=== PATIENT | male | born 1940 | race Caucasian/White ===

== ENCOUNTER 2025-10-17 15:10 | Inpatient (IN) | payer MEDICARE, MEDICAID, SELFPAY ==
--- NOTE | ~2025-10-17 | XR_ITS ---
EXAMINATION: XR HIP, LEFT CLINICAL INFORMATION: fall COMPARISON: None available. TECHNIQUE: AP pelvis, AP supine and frog-leg lateral views of the left hip. FINDINGS: There is a fracture through the neck of the left femur with proximal migration of the femur distal to the fracture and mild varus deformity. No fracture is evident. There are mild degenerative changes in the hips otherwise. XR/XR hip LT w PEL1V IMPRESSION: There is an acute left femoral neck fracture. There is mild bilateral hip osteoarthritis. Electronically signed by: Greg Khalil MD 10/17/2025 05:02 PM [facility]
--- NOTE | ~2025-10-17 | CT_ITS ---
EXAMINATION: CT HEAD WITHOUT CONTRAST CLINICAL INFORMATION: Fall with head injury COMPARISON: None available. TECHNIQUE: Contiguous axial imaging was performed from the skull base to vertex without intravenous administration of contrast. This CT examination was performed using dose optimization techniques as appropriate, variously including the following: *Automated exposure control *Adjustment of mA and/or kV according to patient size (this includes techniques or standardized protocols for targeted exams where dose is matched to indication/reason for exam; i.e. extremities or head) *Use of iterative reconstruction technique FINDINGS: There is no acute ischemic change. Periventricular hypodensities are present. There is no intracranial hemorrhage. There is no mass-effect or midline shift. There is mild generalized atrophy. Basal cisterns and ventricles are within normal limits for age/cerebral volume. Orbits are symmetrical and unremarkable. Paranasal sinuses and mastoid air cells are pneumatized. There are no bony abnormalities. CT/CT head/brain wo IV con IMPRESSION: No acute intracranial abnormality. Periventricular hypodensities are likely related to chronic small vessel disease. Electronically signed by: Greg Khalil MD 10/17/2025 04:54 PM EST
--- NOTE | ~2025-10-17 | CT_ITS ---
EXAMINATION: CT CERVICAL SPINE WITHOUT CONTRAST CLINICAL INFORMATION: Fall, head injury COMPARISON: None available. TECHNIQUE: Axial imaging was performed from the base of the skull through T1 without IV contrast. Coronal and sagittal reformatted images were generated from the original axial data set. ALARA: The examination used one or more of the following radiation dose reduction techniques: Automated exposure control, iterative reconstruction, and/or adjustment of mA and/or KV. FINDINGS: There is mild reversal of the normal cervical lordosis. No fractures are identified. There is no prevertebral soft tissue swelling. Chondrocalcinosis is noted increased ligament dens Multilevel degenerative changes are present with moderate to severe disc space during, endplate sclerosis and irregularities most pronounced in the mid to lower cervical spine. CT/CT cervical spine wo IV con IMPRESSION: No acute fracture is identified. There is mild reversal of cervical lordosis. This can be related to degenerative changes, positioning, muscle spasm, or posterior soft tissue injury. Electronically signed by: Greg Khalil MD 10/17/2025 04:58 PM EST
--- NOTE | ~2025-10-17 | XR_ITS ---
EXAMINATION: XR CHEST CLINICAL INFORMATION: fall COMPARISON: 03/16/2019 TECHNIQUE: Frontal view of the chest was obtained. FINDINGS: Mediastinal wires have been placed since the prior. No pneumothorax is identified. Cardiac size is borderline enlarged. There are low lung volumes with vascular crowding. XR/XR chest 1V IMPRESSION: No acute disease Low lung volumes. Electronically signed by: Greg Khalil MD 10/17/2025 05:07 PM EST
--- NOTE | ~2025-10-17 | XR_ITS ---
CLINICAL HISTORY: LEFT HIP SAMRA 1 view pelvis Comparison: CR/SR - XR HIP 1 VIEW LEFT WITH PELVIS - 10/17/25 16:36 EST Findings: No acute fracture or dislocation. Status post left hip replacement. There is postsurgical soft tissue edema of the hip. IMPRESSION: Postsurgical change of the left hip. This document has been electronically signed by: Laureen Perdomo MD on 10/18/2025 18:40:04
--- NOTE | ~2025-10-17 | XR_ITS ---
EXAMINATION: XR CHEST CLINICAL INFORMATION: fever COMPARISON: Previous chest x-rays most recent October 07, [id number] TECHNIQUE: Frontal view of the chest was obtained. FINDINGS: Low lung volumes. Increasing atelectasis or small infiltrate at the left lung base. Left midlung subsegmental atelectasis. The right lung is clear. No pleural effusion or pneumothorax. Cardiac and mediastinal contours are stable. The ascending thoracic aorta may be prominent. This appears unchanged from prior exams. Mediastinal clips. Median sternotomy wires. Degenerative changes of the spine and right shoulder. XR/XR chest 1V IMPRESSION: Low lung volumes and increasing atelectasis or infiltrate at the left lung base. Electronically signed by: Lucrecia Bruce MD 10/20/2025 02:52 PM GENE
[2025-10-17 15:28] VITALS: BP 137/78; BP 150/70; PULSE 62; PULSE 67; RESP 14; TEMP 36.4; O2SAT 94; O2SAT 96; BMI 34.6
[2025-10-17 15:32] VITALS: BP 137/78; PULSE 62; RESP 14; TEMP 36.4; O2SAT 96
--- NOTE | 2025-10-17 15:42 | ECG_ITS ---
Test Reason : FALL Blood Pressure : */* mmHG Vent. Rate : 66 BPM Atrial Rate : 66 BPM P-R Int : 240 ms QRS Dur : 102 ms QT Int : 406 ms P-R-T Axes : 33 -41 84 degrees QTcB Int : 425 ms Sinus rhythm with 1st degree A-V block Left axis deviation Nonspecific ST and T wave abnormality Abnormal ECG No previous ECGs available Referred By: Keaton Donnelly Electronically Signed By: CHRISTIANE MOSELEY
--- NOTE | 2025-10-17 15:43 | ED_ITS ---
HPI - Fall General Chief Complaint: Fall Stated Complaint: Fall, fell on L side, + c-collar Time Seen by Provider: 10/17/25 15:26 Source: patient and EMS Mode of arrival: EMS Limitations: no limitations History of Present Illness ED Provider: DR. Donnelly HPI Narrative: 85-year-old male past medical history significant for HTN, HLD, s/p CABG patient was taking his trash out when he tripped on the curb and fell hit his head on a trash can with no LOC patient also landed on his left hip unable to bear weight on the left hip with severe pain, patient declined taking anticoagulation, no chest pain, no passing out, no LOC. Related Data Allergies Allergy/AdvReac Type Severity Reaction Status Date / Time No Known Allergies Allergy Verified 10/17/25 15:29 Review of Systems 2 Review of Systems: All other systems are reviewed and are negative Constitutional: Reports as per HPI and Reports no additional constitutional complaints Eyes: Reports as per HPI and Reports no additional eye complaints Reports system reviewed and no additional complaints, except as documented Cardiovascular: Reports as per HPI and Reports no additional cardiovascular complaints Respiratory: Reports as per HPI and Reports no additional respiratory complaints Gastrointestinal: Reports as per HPI and Reports no additional gastrointestinal complaints Genitourinary: Reports no additional female genitourinary complaints Musculoskeletal: Reports no additional musculoskeletal complaints Skin/Breast: Reports system reviewed and no additional complaints, except as docu Psychiatric: Reports no additional psychiatric complaints Endocrine: Reports no additional endocrine complaints Hematologic/Lymphatic: Reports no additional hematologic/lymphatic complaints Allergic/Immunologic: Reports no additional allergic/immunologic complaints Reports system reviewed and no additional complaints, except as documented and Reports Abnormal speech present [facility] Social History Social History Smoked in Last 30 Days: No Use of substances other than those prescribed or required for medical reasons: No Advance Directives: Yes Advance Directives Information Provided: No Advance Directives on File: No Do you have a plan to hurt others: No Plan Physical Exam 2 Vital Signs: Vital Signs: Last Vital Signs Temp 97.6 F 10/17/25 15:32 Pulse 62 10/17/25 15:32 Resp 14 10/17/25 15:32 BP 137/78 10/17/25 15:32 Pulse Ox 96 10/17/25 15:32 O2 Del Method Room Air 10/17/25 15:32 BMI result Body Mass Index 34.6 Vital signs have been reviewed and appear to be correct. Blood pressure elevated. Heart rate normal. Respiratory rate normal. Temperature normal. Oxygen saturation normal. Appearance: Alert. Oriented X3. No acute distress. Head: Normal external exam. Normocephalic. Atraumatic. No Modi signs noted. No raccoon eyes noted Eyes: PERRLA. EOMI. Conjunctiva and sclera normal. Eyelids normal. ENT: TM's Normal. Pharynx normal. Uvula midline. Moist mucous membranes. No trismus noted. No drooling noted. No muffled voice noted. Neck: Normal inspection. Neck supple. FROM. No adenopathy. Thyroid Normal. No meningeal signs. No neck mass noted. CVS: Normal heart rate and rhythm. Heart sound normal. No murmurs noted. Pulses normal throughout. Respiratory: No respiratory distress. Painless inspiration. Breath sounds normal. No wheezes/rales/rhonchi noted. Chest nontender. No accessory muscle usage noted or decreased air movement noted. Abdomen: Soft and nontender. Bowel sounds normal in all 4 quadrants. No distention noted. No organomegaly noted. No visible injury noted. Back: No CVA tenderness. Full range of motion noted. Skin: Skin warm and dry. Normal skin color. Normal skin turgor. No rashes/lesions/lacerations noted. Extremities: Left hip: Held in adduction position , tenderness over left hip with mild deformity with shortness and external rotation. Otherwise neurovascularly intact. Neuro: Oriented X 3. Cranial nerve exam: II-XII are grossly intact No motor deficit. No sensory deficit. Reflexes normal. Course Reevaluation(s) Reevaluation #1: 85-year-old male s/p mechanical fall and left hip fracture no history of anticoagulation, normal neuro exam, GCS of 15, negative head CT for acute intracranial pathology. Left femoral neck fracture case discussed with Dr. Sexton who recommended to admit the patient to the medical service and he will schedule the surgery for tomorrow. Time: 17:18 Medical Decision Making Differential Diagnosis Differential Diagnoses: The differential diagnosis associated with the presentation includes ( Mechanical fall, electrolyte derangement, severe anemia, syncopal episode, left hip fracture.) Admission/Observation Consideration of admission/observation: Escalation of care including admission/observation considered Consult Healthcare Provider Management of the patient was discussed with: Hospitalist ( Dr. Hernandez) and [employer] Project Manager ( Dr. Sexton) Lab Data MDM Lab Attestation statement: I reviewed the patient's lab results. 10/17/25 15:57 10/17/25 15:57 Labs: Lab Results 10/17/25 Range/Units 15:57 WBC 7.4 (4.8-10.8) X10*3/uL RBC 5.39 (4.60-5.80) X10*6/uL Hgb 16.1 (14.0-18.0) g/dl Hct 48.2 (42.0-52.0) % MCV 89.4 (80.0-98.0) fL MCH 29.9 (27.0-33.0) pg MCHC 33.4 (31.0-36.0) g/dl RDW 12.6 (11.0-16.0) % Plt Count 156 L (160-400) X10*3/uL MPV 9.4 (9.4-12.4) fL Immature Gran % (Auto) 0.4 (0.0-0.4) % Neut % (Auto) 68.4 (45-73) % Lymph % (Auto) 20.6 (20-40) % [place] % (Auto) 6.8 (2-11) % Eos % (Auto) 2.4 (0-4) % Baso % (Auto) 1.4 (0-2) % Lymph # (Auto) 1.5 (1.2-4.9) X10*3/uL [place] # (Auto) 0.5 (0.1-1.2) X10*3/uL Eos # (Auto) 0.2 (0.0-0.4) X10*3/uL Baso # (Auto) 0.1 (0.0-0.2) X10*3/uL Abs Immat Gran (auto) 0.03 (0.00-0.03) X10*3/uL Absolute Neuts (auto) 5.1 (2.0-8.3) x10*3/uL Absolute Nucleated RBC 0.000 (0.0-0.012) X10*3/uL Nucleated RBC % (auto) 0.0 (0.0-0.2) /100WBC Sodium 142 (135-145) mmol/L Potassium 4.1 (3.3-5.1) mmol/L Chloride 107 (96-108) mmol/L Carbon Dioxide 29 (22-29) mmol/L Anion Gap 10 L (12-20) BUN 14 (9-16) mg/dL Creatinine 0.69 (0.5-1.4) mg/dL Estim Creat Clear Calc 92.8 Estimated GFR > 60 Random Glucose 86 (60-115) mg/dL Calcium 8.8 (8.4-10.2) mg/dL Total Bilirubin 1.9 H (0.0-1.0) mg/dL Direct Bilirubin 0.4 (0.0-0.5) mg/dL AST 30 (5-37) U/L ALT 23 (0-40) U/L Alkaline Phosphatase 95 (39-117) U/L Troponin I High Sens < 2.7 (<3.5-35.0) ng/L Total Protein 6.3 L (6.5-8.0) g/dL Albumin 3.8 (3.5-5.0) g/dL Lipase 57 (8-78) U/L Influenza Type A (PCR) NEGATIVE (Negative) Influenza Type B (PCR) NEGATIVE (Negative) RSV RNA Qual (PCR) NEGATIVE (Negative) SARS-CoV-2 RNA (RT-PCR) NEGATIVE (Negative) Independent Interpretation I performed an independent interpretation of an: Plain X-Ray ( Chest: Left hip: Left femoral neck fracture.) and CT Scan ( head/cervical spine: No acute pathology.) Radiology Impression Discussion of test interpretation with radiology: I have reviewed the radiologist's reading. Discharge Plan Discharge Clinical Impression: Closed fracture of neck of left femur Patient Disposition: Admitted As Inpatient Print Language: [place]
[2025-10-17 16:08] LABS: MANUAL DIFF FLAG NO
[2025-10-17 16:10] LABS: Hematocrit 48.2 % (42.0-52.0); Hemoglobin 16.1 g/dl (14.0-18.0); Imm Gran Abs Auto 0.03 X10*3/uL (0.00-0.03); Imm Gran Pct Auto 0.4 % (0.0-0.4); Lymphocytes Absolute Auto 1.5 X10*3/uL (1.2-4.9); Mean Corpuscular HGB Conc 33.4 g/dl (31.0-36.0); Mean Corpuscular Hemoglobin 29.9 pg (27.0-33.0); Mean Corpuscular Volume 89.4 fL (80.0-98.0); NRBC Abs Auto 0.000 X10*3/uL (0.0-0.012); NRBC Pct Auto 0.0 /100WBC (0.0-0.2); Platelet Count 156 X10*3/uL (160-400); Red Blood Count 5.39 X10*6/uL (4.60-5.80); White Blood Count 7.4 X10*3/uL (4.8-10.8)
[2025-10-17 16:36] LABS: Troponin-I High Sensitivity < 2.7 ng/L (<3.5-35.0)
[2025-10-17 16:37] LABS: Anion Gap 10 (12-20); Blood Urea Nitrogen 14 mg/dL (9-16); Carbon Dioxide 29 mmol/L (22-29); Chloride 107 mmol/L (96-108); Creatinine Clr Calc Pharmacy 92.8; Potassium 4.1 mmol/L (3.3-5.1); Sodium 142 mmol/L (135-145)
[2025-10-17 16:38] LABS: Alanine Aminotransferase 23 U/L (0-40); Albumin Level 3.8 g/dL (3.5-5.0); Alkaline Phosphatase 95 U/L (39-117); Aspartate Amino Transferase 30 U/L (5-37); Calcium 8.8 mg/dL (8.4-10.2); Estimated Glomerular Filt Rate > 60; Lipase 57 U/L (8-78); Total Protein 6.3 g/dL (6.5-8.0)
[2025-10-17 16:51] LABS: Resp Syncy Virus RNA Qual PCR NEGATIVE (Negative); SARS COV2 PCR INHOUSE NEGATIVE (Negative)
--- NOTE | 2025-10-17 16:59 | PC.NURSE ---
A&O x 3 Patient presents to ED after tripping and falling at home Headstrike on trash can Denies LOC, vision changes, thinners, Patient experiencing pain in left hip, unable to bear weight Pending imaging Head CT = negative IV 20G left ac Patient refusing hernandez cath at this time, patient needs assistance with urinal. Plan of care on going
[2025-10-17 17:46] VITALS: BP 134/66; PULSE 60; RESP 16; TEMP 36.4; O2SAT 97
--- NOTE | 2025-10-17 18:15 | P.HPHOSP_ITS ---
History of Present Illness Date of Service: 10/17/25 Chief Complaint: Fall with left femoral neck fracture 85-year-old male with past medical history significant for hypertension hyperlipidemia coronary artery disease status post CABG x2 proximally 15 years remote was taking out his trash cans when he suffered a mechanical fall landing on left hip. He also notes head strike to the trash can. In the emergency room head and neck CTA were negative for acute injury. Plain films demonstrate left femoral neck fracture. He will be admitted for orthopedic intervention Review of Systems 2 Review of Systems: Denies chest pain Denies shortness of breath Denies nausea vomiting diarrhea Denies fever chills [facility] Social History Smoked in Last 30 Days: No Use of substances other than those prescribed or required for medical reasons: No Advance Directives: Yes Advance Directives Information Provided: No Advance Directives on File: No Do you have a plan to hurt others: No Plan Meds Allergies Allergy/AdvReac Type Severity Reaction Status Date / Time No Known Allergies Allergy Verified 10/17/25 15:29 Active Medications: Current Medications Acetaminophen (Acetaminophen 325 Mg Tablet) 650 mg PO Q6H PRN PRN Reason: Pain, Mild 1-3,fever,headache Calcium Carbonate (Calcium Carbonate 750 Mg Tab.Chew) 750 mg PO Q4H PRN PRN Reason: Heartburn Enoxaparin Sodium (Enoxaparin Sodium 40 Mg/0.4 Ml Syringe) 40 mg SUBCUT Q24H SWAPNA Magnesium Hydroxide (Milk Of Magnesia 30 Ml Oral.Susp) 30 ml PO DAILY PRN PRN Reason: Constipation Melatonin (Melatonin 3 Mg Tablet) 6 mg PO BEDTIME PRN PRN Reason: Insomnia Morphine Sulfate (Morphine Sulfate 4 Mg/Ml Cartridge) 4 mg IVPUSH Q4H PRN; Protocol PRN Reason: Pain, Severe (Pain Scale 7-10) Last Admin: 10/17/25 18:09 Dose: 4 mg Ondansetron HCl (Ondansetron Hcl 4 Mg/2 Ml Vial) 4 mg IVPUSH Q8H PRN PRN Reason: Nausea and Vomiting Oxycodone HCl (Oxycodone Hcl Immed Release 5 Mg Tablet) 10 mg PO Q4H PRN PRN Reason: Pain, Moderate(Pain Scale 4-6) Sodium Chloride (0.9 % Sodium Chloride Flush 3 Ml Syringe) 3 ml IVFLUSH QSHIFT SWAPNA Home Medications ?Medication ?Instructions ?Recorded ?Confirmed ?Last Taken ?Type No Known Home Meds 10/17/25 Unknown Hi story Physical Exam 2 Vital Signs and Narrative: Vital Signs: Last Vital Signs Temp 97.6 F 10/17/25 17:46 Pulse 60 10/17/25 17:46 Resp 16 10/17/25 17:46 BP 134/66 10/17/25 17:46 Pulse Ox 97 10/17/25 17:46 O2 Del Method Room Air 10/17/25 17:46 BMI result Body Mass Index 34.6 Const: Other: Awake alert uncomfortable appearing lying quietly in stretcher Resp: Other: Clear to auscultation bilaterally no rales rhonchi or wheezes Cardio: Other: No S4; positive S1-S2; no S3 murmurs rubs or gallops GI: Other: Soft nontender nondistended normoactive bowel sounds Neuro: Other: Cranial nerves 2-12 grossly intact as tested. Motor is 5/5 on the right side left exam limited by fracture. Cognition appropriate Extrem: Other: No edema bilaterally Results Labs 10/17/25 15:57 10/17/25 15:57 Labs: Laboratory Results - last 24 hr 10/17/25 15:57 MCV 89.4 MCH 29.9 MCHC 33.4 RDW 12.6 Plt Count 156 L MPV 9.4 Immature Gran % (Auto) 0.4 Neut % (Auto) 68.4 Lymph % (Auto) 20.6 [place] % (Auto) 6.8 Eos % (Auto) 2.4 Baso % (Auto) 1.4 Lymph # (Auto) 1.5 [place] # (Auto) 0.5 Eos # (Auto) 0.2 Baso # (Auto) 0.1 Abs Immat Gran (auto) 0.03 Absolute Neuts (auto) 5.1 Absolute Nucleated RBC 0.000 Nucleated RBC % (auto) 0.0 Anion Gap 10 L Estim Creat Clear Calc 92.8 Estimated GFR > 60 Random Glucose 86 Calcium 8.8 Total Bilirubin 1.9 H Direct Bilirubin 0.4 AST 30 ALT 23 Alkaline Phosphatase 95 Troponin I High Sens < 2.7 Total Protein 6.3 L Albumin 3.8 Lipase 57 Influenza Type A (PCR) NEGATIVE Influenza Type B (PCR) NEGATIVE RSV RNA Qual (PCR) NEGATIVE SARS-CoV-2 RNA (RT-PCR) NEGATIVE Imaging Radiologist's Impressions: Impressions Cervical Spine CT 10/17/25 16:20 IMPRESSION: No acute fracture is identified. There is mild reversal of cervical lordosis. This can be related to degenerative changes, positioning, muscle spasm, or posterior soft tissue injury. Electronically signed by: Greg Khalil MD 10/17/2025 04:58 PM EST RP Head CT 10/17/25 16:20 IMPRESSION: No acute intracranial abnormality. Periventricular hypodensities are likely related to chronic small vessel disease. Electronically signed by: Greg Khalil MD 10/17/2025 04:54 PM EST RP Hip/Pelvis X-Ray 10/17/25 16:36 IMPRESSION: There is an acute left femoral neck fracture. There is mild bilateral hip osteoarthritis. Electronically signed by: Greg Khalil MD 10/17/2025 05:02 PM EST RP Chest X-Ray 10/17/25 16:37 IMPRESSION: No acute disease Low lung volumes. Electronically signed by: Greg Khalil MD 10/17/2025 05:07 PM EST RP Assessment and Plan (1) Closed fracture of neck of left femur: Qualifiers: Encounter type: initial encounter Qualified Code(s): S72.002A - Fracture of unspecified part of neck of left femur, initial encounter for closed fracture Status: Acute (2) Coronary artery disease: Qualifiers: Coronary Disease-Associated Artery/Lesion type: unspecified vessel or lesion type [place] vs. transplanted heart: [place] heart Associated angina: u nspecified whether angina present Qualified Code(s): I25.10 - Atherosclerotic heart disease of [place] coronary artery without angina pectoris Status: Acute (3) Hyperlipidemia: Qualifiers: Hyperlipidemia type: unspecified Qualified Code(s): E78.5 - Hyperlipidemia, unspecified Status: Acute Plan 85-year-old male with past medical history significant for hypertension hyperlipidemia and coronary artery disease presents after mechanical fall with a left femoral neck fracture. 1. Left femoral neck fracture -as per ortho -morphine/oxycodone for pain management -NPO after midnight 2. Coronary artery disease (status post bypass grafting greater than 10 years remote) -limited cardiac follow up per patient -check 2D echo in a.m. -cardiology consult for risk stratification 3. Hyperlipidemia -continue statin and outpatient dosing Full code Lovenox Patient will require at least 2 midnights going forward of inpatient stay for surgical intervention to treat a left femoral neck fracture. This can not be achieved a lesser acute setting Quality Stroke Does the patient have a stroke diagnosis?: No VTE Prior VTE?: No VTE Risk Level:: Medical - moderate - high VTE Device Contraindication: Treatment Not Indicated VTE Drug Contraindication: N/A - Med Ordered
--- NOTE | 2025-10-17 18:34 | PHA.MEDREC ---
Addendum entered by William Tay PharmD 10/17/25 18:45: reviewed Original Note: Pharmacy Consult ? Medication Reconciliation Pharmacy has completed the medication reconciliation. Spoke with pt and he [facility] (was only able to confirm Metoprolol, Aspirin 81mg and Paroxetine but doesn't remember dose or how he takes them). I contacted the [facility] and they [facility] list of pt medications.
[2025-10-17 18:39] VITALS: BP 134/66; PULSE 60; RESP 16; TEMP 36.4; O2SAT 97
[2025-10-17] MEDS: oxyCODONE HCl Immed Release 5 MG TABLET 10 MG PO ×2 (18:51→22:57)
--- NOTE | 2025-10-17 21:41 | HO.NURTONUR ---
pt BIBA from home, mechanical fall outside bringing in trash cans. fell onto L hip, head strike. no thinners, head/neck CT negative. ADMIT: L femoral neck fx. surgery 10/18. NPO at midnight. pt A/O x4, calm and cooperative with care, ambulated independently prior to fall. 20g IV LAC. using urinal independently. cardiology consult, echo in AM.
--- NOTE | 2025-10-17 23:00 | PC.NURSE ---
RN assumed care @ around 2345; pt axox4, calm & cooperative. Pt did state 09/09 pain- pt medicated per jan. pt also requested food and water. RN provided pt with ice water and turkey sandwich. RN informed pt he will be NPO after midnight. Pt aware and verbalized understanding. bed on lowest position. Yellow socks on, call weaver within reach.
[2025-10-18] VITALS (13 sets, daily range): BP systolic 90–146; BP diastolic 55–81; PULSE 64–84; RESP 12–21; TEMP 36.1–37.1; O2SAT 92–94
--- NOTE | 2025-10-18 07:00 | CA_ITS ---
Transthoracic Echocardiogram Patient (Last, First, Middle): Eric Collins E Gender: Male Date of : 1940 Age: 85 Procedure Date: 10/18/2025 Procedure Type: Transthoracic Echocardiogram Location: ER Height: 172.72 cm Weight: 102.97 kg BSA: 2.16 m2 Heart Rate: bpm BP: 136 / 81 mmHg Business Operations Specialist: SB Referring MD: Channing Hernandez DO Symptoms: CAD/ preop evaluation Study Quality: Adequate w contrast ECG Rhythm: Sinus Conclusions: - The left ventricular systolic function is normal. The visually estimated ejection fraction is between 65-70%. - [id number] focal hypertrophy of the basal septum. - No obvious valvular pathology seen on this study. Findings Procedure Information Contrast agent, definity, is being given per protocol without apparent complications. Left Ventricle Normal left ventricular cavity size. The left ventricular systolic function is normal. The visually estimated ejection fraction is between 65-70%. There is no evidence of regional wall motion abnormalities. Diastolic function is normal for age. [id number] focal hypertrophy of the basal septum. Right Ventricle Normal right ventricular cavity size and systolic function. Atria Both atria are normal in size. Aortic Valve The aortic valve was not well visualized. There is no aortic valve stenosis. There is trace (trivial) aortic valve regurgitation. Mitral Valve The mitral valve was not well visualized. There is no mitral valve regurgitation. There is no mitral valve stenosis. Pulmonic Valve The pulmonic valve is likely normal. Tricuspid Valve There is trace tricuspid valve regurgitation. Tricuspid regurgitation envelope is inadequate for calculation of right ventricular systolic pressure. Great Vessels The asc aorta and aortic arch are normal in size. Venous The inferior vena cava was not well visualized. Pericardium/Pleural There is no evidence of pericardial effusion. Prior Study Comparison No prior study available for comparison. Recommendations, Care & Conclusions No obvious valvular pathology seen on this study. Measurements 2D Linear Measurements IVSd: 1.29 0.6-0.9/0.6-1.0 cm LVIDd: 4.68 3.9-5.3/4.2-5.9 cm LVIDd Index: 2.17 2.4-3.2/2.2-3.1 cm/m2 LVIDs: 3.06 2.0-3.6 cm LVPWd: 1.09 0.7-1.1 cm LV Mass: 259.37 67-162/88-224 g LV Mass Index: 120.08 43-95/49-115 g/m2 LVOT Diam: 2.10 3.0+(-)1.3 cm 2D Systolic Function EF 4C: 70.70 >55% EF 2C: 77.80 >55% EF BiP: 74.00 >55% Mitral Valve MV Pk E: 0.43 MV PK A: 0.67 MV Decel Time: 217.00 E/A: 0.60 E'Lateral: 6.31 E'Medial: 4.57 E/E' Med: 9.40 E/E' Lat: 6.80 PHT: 63.00 MVA PHT: 3.49 Decel Gillespie: 1.98 Aortic Valve AoV Pk Brice: 1.24 AoV Mn Brice: 0.87 AoV VTI: 0.19 AoV Pk Grad: 6.00 Aov Mn Grad: 4.00 AUGS Cont.VTI: 3.10 AI Pk Brice: 3.94 AI Gillespie: 2.49 LVOT LVOT Pk Brice: 1.05 LVOT Mn Brice: 0.73 LVOT VTI: 0.17 LVOT Pk Grad: 4.00 LVOT Mn Grad: 3.00 LVOT Diam: 2.10 LVOT Area: 3.46 Diastolic Function MV Pk E: 0.43 MV Pk A: 0.67 E/A: 0.60 E'Medial: 4.57 E/E' Med: 9.40 E' Laterial: 6.31 E/E' Lat: 6.80 Right Ventricle TAPSE (mm): 22.60 TVS' Brice: 13.20 Great Vessels Aorta Sinus of Valsalva: 3.70 2.0-3.5 cm Ao Asc: 3.90 2.1-3.4 cm Ao Arch: 2.90 Pulmonary Valve PV Pk Brice: 0.83 Peak PV Grad: 3.00 Updated in Other Vendor System with Status of Final Chriss Hightower MD electronically signed on 10/18/2025 11:12:57 AM with status of Final
[2025-10-18] MEDS: 0.9 % Sodium Chloride Flush 3 ML SYRINGE IVFLUSH (07:57)
--- NOTE | 2025-10-18 08:16 | HO.ANESPROP2 ---
Documented by User: Evette Bowers NP 10/18/25 12:56 HPI - Anesthesia Eval Consult details Narrative: 85 yr old male for left hip hemiathroplasty No CP; gets SOB with taking out trash, stair climbing; he tells me he is very sedentary, mostly watches TV. On O2 in hospital, no O2 at home; reports SOB x2 yrs, has seen pulmo at [facility] in [facility] Seen by [facility] cards 10/18, echo done * see below Follows [facility] cardiology, last went about 5 yrs ago. 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 Baseline trouble remembering ADRIA: not using CPAP PMFSH Active Problems Active Problems: All Active Problems Hyperlipidemia (Acute) Coronary artery disease (Acute) Closed fracture of neck of left femur (Acute) Past Medical History Medical History (Updated 10/18/25 @ 13:58 by Farideh Cates RN) Angioma Depression Anxiety Urinary retention Cataract Coronary artery disease HLD (hyperlipidemia) HTN (hypertension) Family History Family history of problems with anesthesia: No Surgical History Surgical History (Updated 10/18/25 @ 13:56 by Farideh Cates RN) [place] teeth extracted H/O wrist surgery History of appendectomy S/P CABG x 2 History of Problems with Anesthesia: No Social History Social History Household Members: None Housing: House Do you presently have visiting nurse or other home services: No Patient Tobacco Use Status: Never used Tobacco Advance Directives Date on File: 10/18/25 Meds Allergies Allergy/AdvReac Type Severity Reaction Status Date / Time No Known Allergies Allergy Verified 10/17/25 15:29 Active Medications: Current Medications Acetaminophen (Acetaminophen 325 Mg Tablet) 650 mg PO Q6H PRN PRN Reason: Pain, Mild 1-3,fever,headache Last Admin: 10/18/25 06:44 Dose: 650 mg Calcium Carbonate (Calcium Carbonate 750 Mg Tab.Chew) 750 mg PO Q4H PRN PRN Reason: Heartburn Enoxaparin Sodium (Enoxaparin Sodium 40 Mg/0.4 Ml Syringe) 40 mg SUBCUT Q24H SWAP[facility] Last Admin: 10/17/25 18:47 Dose: 40 mg Magnesium Hydroxide (Milk Of Magnesia 30 Ml Oral.Susp) 30 ml PO DAILY PRN PRN Reason: Constipation Melatonin (Melatonin 3 Mg Tablet) 6 mg PO BEDTIME PRN PRN Reason: Insomnia Metoprolol Tartrate (Metoprolol Tartrate 25 Mg Tablet) 25 mg PO BID [facility]; Protocol Morphine Sulfate (Morphine Sulfate 4 Mg/Ml Cartridge) 4 mg IVPUSH Q4H PRN; Protocol PRN Reason: Pain, Severe (Pain Scale 7-10) Last Admin: 10/18/25 06:45 Dose: 4 mg Non-Formulary Medication (Carboxymethylcellulose Sodium) 1 drop EYE-BOTH QID [facility] Ondansetron HCl (Ondansetron Hcl 4 Mg/2 Ml Vial) 4 mg IVPUSH Q8H PRN PRN Reason: Nausea and Vomiting Oxycodone HCl (Oxycodone Hcl Immed Release 5 Mg Tablet) 10 mg PO Q4H PRN PRN Reason: Pain, Moderate(Pain Scale 4-6) Last Admin: 10/17/25 22:57 Dose: 10 mg Paroxetine HCl (Paroxetine Hcl 30 Mg Tablet) 30 mg PO DAILY [facility] Polyethylene Glycol (Polyethylene Glycol 3350 17 Gm Powd.Pack) 17 gm PO DAILY [facility] Pravastatin Sodium (Pravastatin Sodium 40 Mg Tablet) 40 mg PO BEDTIME [facility] Quetiapine Fumarate (Quetiapine Fumarate 25 Mg Tablet) 25 mg PO BEDTIME [facility] Senna/Docusate Sodium (Sennosides/Docusate Sodium Tablet) 2 tab PO DAILY [facility] Sodium Chloride (0.9 % Sodium Chloride Flush 3 Ml Syringe) 3 ml IVFLUSH QSHIFT [facility] Last Admin: 10/18/25 07:57 Dose: 3 ml Tamsulosin HCl (Tamsulosin Hcl 0.4 Mg Capsule) 0.4 mg PO BEDTIME [facility] Home Medications ?Medication ?Instructions ?Recorded ?Confirmed ?Last Taken ?Type aspirin 81 mg tablet 81 mg PO DAILY 10/17/25 10/17/25 10/17/25 09:00 History carboxymethylcellulose sodium 0.5 1 drp ophthalmic (eye) QID 10/17/25 10/17/25 10/17/25 09:00 History % eye drops metoprolol tartrate 25 mg tablet 25 mg PO BID 10/17/25 10/17/25 10/17/25 09:00 History paroxetine HCl 30 mg tablet 30 mg PO DAILY 10/17/25 10/17/25 10/17/25 09:00 History polyethylene glycol 3350 17 17 g PO DAILY 10/17/25 10/17/25 10/17/25 09:00 History gram/dose oral powder pravastatin 40 mg tablet 40 mg PO BEDTIME 10/17/25 10/17/25 10/16/25 History quetiapine 25 mg tablet 25 mg PO BEDTIME 10/17/25 10/17/25 10/16/25 History sennosides 8.6 mg-docusate sodium 2 tab-cap PO DAILY 10/17/25 10/17/25 10/17/25 09:00 History 50 mg tablet (Senna with Docusate Sodium) sildenafil 100 mg tablet 100 mg PO DAILY PRN Sexual Activity 10/17/25 10/17/25 Unknown History tadalafil 20 mg tablet 20 mg PO DAILY PRN Sexual Activity 10/17/25 10/17/25 Unknown History tamsulosin 0.4 mg capsule 0.4 mg PO BEDTIME 10/17/25 10/17/25 10/16/25 History Exam Height,Weight and Vital Signs: Height 5 ft 8 in Weight 103.3 kg Last Vital Signs Temp 98.7 F 10/18/25 06:45 Pulse 74 10/18/25 06:45 Resp 20 10/18/25 06:45 BP 136/81 10/18/25 06:45 Pulse Ox 92 10/18/25 06:45 O2 Del Method Nasal Cannula 10/18/25 06:45 O2 Flow Rate 3 10/18/25 06:45 Pertinent Lab Results Pertinent Lab Results: Laboratory Tests 10/17/25 15:57 WBC 7.4 RBC 5.39 Hgb 16.1 Hct 48.2 MCV 89.4 MCH 29.9 MCHC 33.4 RDW 12.6 Plt Count 156 L MPV 9.4 Immature Gran % (Auto) 0.4 Neut % (Auto) 68.4 Lymph % (Auto) 20.6 Ponce % (Auto) 6.8 Eos % (Auto) 2.4 Baso % (Auto) 1.4 Lymph # (Auto) 1.5 Ponce # (Auto) 0.5 Eos # (Auto) 0.2 Baso # (Auto) 0.1 Abs Immat Gran (auto) 0.03 Absolute Neuts (auto) 5.1 Absolute Nucleated RBC 0.000 Nucleated RBC % (auto) 0.0 Sodium 142 Potassium 4.1 Chloride 107 Carbon Dioxide 29 Anion Gap 10 L BUN 14 Creatinine 0.69 Estim Creat Clear Calc 92.8 Estimated GFR > 60 Random Glucose 86 Calcium 8.8 Total Bilirubin 1.9 H Direct Bilirubin 0.4 AST 30 ALT 23 Alkaline Phosphatase 95 Troponin I High Sens < 2.7 Total Protein 6.3 L Albumin 3.8 Lipase 57 Influenza Type A (PCR) NEGATIVE Influenza Type B (PCR) NEGATIVE RSV RNA Qual (PCR) NEGATIVE SARS-CoV-2 RNA (RT-PCR) NEGATIVE Narrative Narrative: EKG 10/17/25 Vent. Rate : 66 BPM Atrial Rate : 66 BPM P-R Int : 240 ms QRS Dur : 102 ms QT Int : 406 ms P-R-T Axes : 33 -41 84 degrees QTcB Int : 425 ms Sinus rhythm with 1st degree A-V block Left axis deviation T wave abnormality, consider anterior ischemia Abnormal ECG No previous ECGs available ECHO 10/18/25 Conclusions: - The left ventricular systolic function is normal. The visually estimated ejection fraction is between 65-70%. - Hpzjjaox-og-rlaevc focal hypertrophy of the basal septum. - No obvious valvular pathology seen on this study. Findings Procedure Information Contrast agent, definity, is being given per protocol without apparent complications. Left Ventricle Normal left ventricular cavity size. The left ventricular systolic function is normal. The visually estimated ejection fraction is between 65-70%. There is no evidence of regional wall motion abnormalities. Diastolic function is normal for age. Itttbzlg-[id number] focal hypertrophy of the basal septum. Right Ventricle Normal right ventricular cavity size and systolic function. Nuclear Stress Test 07/2025 IMPRESSION: 1. Normal pharmacological nuclear stress test. ? 2. Symptoms: No chest pain during the regadenoson infusion ? 3. Stress ECG: No ischemic ECG changes with the regadenoson infusion in the setting of an abnormal baseline ? 4. Myocardial perfusion imaging: - Myocardial perfusion imaging revealed no areas of ischemia or infarction after attenuation correction was applied. ? 5. TID was normal at 1.19. ? 6. Gated images revealed normal LV wall motion and thickening; with a normal LV systolic function (LVEF 65%). ? 7. Multivessel coronary artery calcifications were noted on the CT scan images obtained for attenuation correction Airway Mallampati Class: IV TM Dist: >3cm Neck ROM: Limited Denture: Upper Heart: RRR Lungs: CTAB Assessment and Plan Final Anesthetic Review Family History of Problems with Anesthesia: No History of Problems with Anesthesia: No Documented by User: Frank Arroyo MD 10/18/25 15:18 [facility] Past Medical History Medical History (Updated 10/18/25 @ 13:58 by Farideh Cates, RN) Angioma Depression Anxiety Urinary retention Cataract Coronary artery disease HLD (hyperlipidemia) HTN (hypertension) Surgical History Surgical History (Updated 10/18/25 @ 13:56 by Farideh Cates, JAMAL) [place] teeth extracted H/O wrist surgery History of appendectomy S/P CABG x 2 Social History Social History Household Members: None Housing: House Do you presently have visiting nurse or other home services: No Patient Tobacco Use Status: Never used Tobacco Advance Directives Date on File: 10/18/25 Meds Allergies Allergy/AdvReac Type Severity Reaction Status Date / Time No Known Allergies Allergy Verified 10/17/25 15:29 Home Medications ?Medication ?Instructions ?Recorded ?Confirmed ?Last Taken ?Type aspirin 81 mg tablet 81 mg PO DAILY 10/17/25 10/17/25 10/17/25 09:00 History carboxymethylcellulose sodium 0.5 1 drp ophthalmic (eye) QID 10/17/25 10/17/25 10/17/25 09:00 History % eye drops metoprolol tartrate 25 mg tablet 25 mg PO BID 10/17/25 10/17/25 10/17/25 09:00 History paroxetine HCl 30 mg tablet 30 mg PO DAILY 10/17/25 10/17/25 10/17/25 09:00 History polyethylene glycol 3350 17 17 g PO DAILY 10/17/25 10/17/25 10/17/25 09:00 History gram/dose oral powder pravastatin 40 mg tablet 40 mg PO BEDTIME 10/17/25 10/17/25 10/16/25 History quetiapine 25 mg tablet 25 mg PO BEDTIME 10/17/25 10/17/25 10/16/25 History sennosides 8.6 mg-docusate sodium 2 tab-cap PO DAILY 10/17/25 10/17/25 10/17/25 09:00 History 50 mg tablet (Senna with Docusate Sodium) sildenafil 100 mg tablet 100 mg PO DAILY PRN Sexual Activity 10/17/25 10/17/25 Unknown History tadalafil 20 mg tablet 20 mg PO DAILY PRN Sexual Activity 10/17/25 10/17/25 Unknown History tamsulosin 0.4 mg capsule 0.4 mg PO BEDTIME 10/17/25 10/17/25 10/16/25 History Assessment and Plan Assessment Anesthesia Assessment: Anesthesia Plan Discussed and Chart Reviewed Final Anesthetic Review ASA Class: III Final Preanesthetic Review: No Changes in Pt Med Stat, Meds/Allgs Chart Reviewed, Consent Obtained/Reviewed and Anes Risks/Benef Reviewed Patient Risk: Intermediate Procedure Risk: Low Anesthetic Plan Anesthetic Plan: GA Disposition: Standard PACU
--- NOTE | 2025-10-18 08:20 | PM.CNOR ---
History of Present Illness HPI Consult date: 10/18/25 Chief complaint: acute femoral neck fracture Narrative: 85-year-old male past medical history significant for HTN, HLD, s/p CABG patient was taking his trash out when he tripped on the curb and fell hit his head on a trash can with no LOC patient also landed on his left hip unable to bear weight on the left hip with severe pain, patient declined taking anticoagulation, no chest pain, no passing out, no LOC. He was seen in the ED, xrays demonstrated left fem neck fx. Admitted to medicine with ortho consult for recommendations. Review of Systems Review of Systems: Yes all other systems are reviewed and are negative PMFSH Past Medical History Medical History (Updated 10/18/25 @ 07:54 by Inge Faust RN) Coronary artery disease HLD (hyperlipidemia) HTN (hypertension) Surgical History Surgical History (Updated 10/18/25 @ 07:54 by Inge Faust RN) S/P CABG x 2 Social History Social History Household Members: None Housing: House Do you presently have visiting nurse or other home services: No Patient Tobacco Use Status: Never used Tobacco Smoked in Last 30 Days: No Use of substances other than those prescribed or required for medical reasons: No Have you been hit, kicked, punched, or otherwise hurt by someone within the past year? If so, by whom?: No Do you feel safe in your current relationship?: No Current Relationship Is there a partner from a previous relationship who is making you feel unsafe now?: No Are you made to feel afraid or neglected: No Advance Directives: Yes Advance Directives Information Provided: No Advance Directives on File: No Advance Directives Date on File: 10/18/25 Do you have a plan to hurt others: No Plan Recently lost weight without trying: Yes How much weight loss: 24-33 pounds Eating poorly because of decreased appetite: Yes Nutrition screen score: 6 Nutrition Risks: Poor intake 0-25% >4 days Meds Allergies Allergy/AdvReac Type Severity Reaction Status Date / Time No Known Allergies Allergy Verified 10/17/25 15:29 Active Medications: Current Medications Acetaminophen (Acetaminophen 325 Mg Tablet) 650 mg PO Q6H PRN PRN Reason: Pain, Mild 1-3,fever,headache Last Admin: 11/18/25 06:44 Dose: 650 mg Calcium Carbonate (Calcium Carbonate 750 Mg Tab.Chew) 750 mg PO Q4H PRN PRN Reason: Heartburn Enoxaparin Sodium (Enoxaparin Sodium 40 Mg/0.4 Ml Syringe) 40 mg SUBCUT Q24H [facility] Last Admin: 10/17/25 18:47 Dose: 40 mg Magnesium Hydroxide (Milk Of Magnesia 30 Ml Oral.Susp) 30 ml PO DAILY PRN PRN Reason: Constipation Melatonin (Melatonin 3 Mg Tablet) 6 mg PO BEDTIME PRN PRN Reason: Insomnia Metoprolol Tartrate (Metoprolol Tartrate 25 Mg Tablet) 25 mg PO BID [facility]; Protocol Morphine Sulfate (Morphine Sulfate 4 Mg/Ml Cartridge) 4 mg IVPUSH Q4H PRN; Protocol PRN Reason: Pain, Severe (Pain Scale 7-10) Last Admin: 10/18/25 06:45 Dose: 4 mg Non-Formulary Medication (Carboxymethylcellulose Sodium) 1 drop EYE-BOTH QID [facility] Ondansetron HCl (Ondansetron Hcl 4 Mg/2 Ml Vial) 4 mg IVPUSH Q8H PRN PRN Reason: Nausea and Vomiting Oxycodone HCl (Oxycodone Hcl Immed Release 5 Mg Tablet) 10 mg PO Q4H PRN PRN Reason: Pain, Moderate(Pain Scale 4-6) Last Admin: 10/17/25 22:57 Dose: 10 mg Paroxetine HCl (Paroxetine Hcl 30 Mg Tablet) 30 mg PO DAILY [facility] Polyethylene Glycol (Polyethylene Glycol 3350 17 Gm Powd.Pack) 17 gm PO DAILY [facility] Pravastatin Sodium (Pravastatin Sodium 40 Mg Tablet) 40 mg PO BEDTIME [facility] Quetiapine Fumarate (Quetiapine Fumarate 25 Mg Tablet) 25 mg PO BEDTIME [facility] Senna/Docusate Sodium (Sennosides/Docusate Sodium Tablet) 2 tab PO DAILY [facility] Sodium Chloride (0.9 % Sodium Chloride Flush 3 Ml Syringe) 3 ml IVFLUSH QSHIFT [facility] Last Admin: 10/18/25 07:57 Dose: 3 ml Tamsulosin HCl (Tamsulosin Hcl 0.4 Mg Capsule) 0.4 mg PO BEDTIME [facility] Home Medications ?Medication ?Instructions ?Recorded ?Confirmed ?Last Taken ?Type aspirin 81 mg tablet 81 mg PO DAILY 10/17/25 10/17/25 10/17/25 09:00 History carboxymethylcellulose sodium 0.5 1 drp ophthalmic (eye) QID 10/17/25 10/17/25 10/17/25 09:00 History % eye drops metoprolol tartrate 25 mg tablet 25 mg PO BID 10/17/25 10/17/25 10/17/25 09:00 History paroxetine HCl 30 mg tablet 30 mg PO DAILY 10/17/25 10/17/25 10/17/25 09:00 History polyethylene glycol 3350 17 17 g PO DAILY 10/17/25 10/17/25 10/17/25 09:00 History gram/dose oral powder pravastatin 40 mg tablet 40 mg PO BEDTIME 10/17/25 10/17/25 10/16/25 History quetiapine 25 mg tablet 25 mg PO BEDTIME 10/17/25 10/17/25 10/16/25 History sennosides 8.6 mg-docusate sodium 2 tab-cap PO DAILY 10/17/25 10/17/25 10/17/25 09:00 History 50 mg tablet (Senna with Docusate Sodium) sildenafil 100 mg tablet 100 mg PO DAILY PRN Sexual Activity 10/17/25 10/17/25 Unknown History tadalafil 20 mg tablet 20 mg PO DAILY PRN Sexual Activity 10/17/25 10/17/25 Unknown History tamsulosin 0.4 mg capsule 0.4 mg PO BEDTIME 10/17/25 10/17/25 10/16/25 History Physical Exam Vital Signs: Vital Signs: Last Vital Signs Temp 98.7 F 10/18/25 06:45 Pulse 74 10/18/25 06:45 Resp 20 10/18/25 06:45 BP 136/81 10/18/25 06:45 Pulse Ox 92 10/18/25 06:45 O2 Del Method Nasal Cannula 10/18/25 06:45 O2 Flow Rate 3 10/18/25 06:45 BMI result Body Mass Index 34.6 Const: General: cooperative, healthy appearing, comfortable and no acute distress Extrem: Other: Left leg short and ER. Pain with movement , he is able to plantar and dorsiflex. NVI Results Labs 10/17/25 15:57 10/17/25 15:57 Labs: Abnormal lab results 10/17/25 Range/Units 15:57 Plt Count 156 L (160-400) X10*3/uL Anion Gap 10 L (12-20) Total Bilirubin 1.9 H (0.0-1.0) mg/dL Total Protein 6.3 L (6.5-8.0) g/dL H & H 10/17/25 Range/Units 15:57 Hgb 16.1 (14.0-18.0) g/dl Hct 48.2 (42.0-52.0) % All other labs normal. Diagnostic results Hip x-ray: image reviewed (XR hip LT w PEL1V IMPRESSION: There is an acute left femoral neck fracture. There is mild bilateral hip osteoarthritis.) Assessment and Plan (1) Closed fracture of neck of left femur: Qualifiers: Encounter type: initial encounter Qualified Code(s): S72.002A - Fracture of unspecified part of neck of left femur, initial encounter for closed fracture Status: Acute Plan I explained to the patient the extent of his injury which would benefit from surgical intervention for optimal functioning. The patient does understand nonsurgical intervention would result in significantly limited function including bed bound for anywhere from 8-12 weeks at least. Given the patient's activity level and he is independent with ADL's, it would be recommended to pursue surgical intervention. We discussed the procedure in detail along with the risks benefits and alternatives. Risks including but not limited to infection, injury to surrounding nerves and tissue and bone, small and large vessels, stiffness,need for further surgery, DVT/PE along with intraoperative complications including but not limited to . We discussed postoperative recovery which includes Home with VNA vs STR. I explained typical recovery is often WBAT with a walker for approximately 6 weeks,but overall recovery could be anywhere from 6-12 months. The patient does express understanding and would like to proceed with Operative fixation of the left hip with Dr. Sexton. The patient will be booked accordingly. NPO , medical clearance obtained. Procedures Date of Service Date of Service: 10/18/25
--- NOTE | 2025-10-18 09:28 | P.CONCA_ITS ---
History of Present Illness History of Present Illness Date of Service: 10/18/25 Chief complaint: acute femoral neck fracture Narrative: This is a cardiology consultation regarding preoperative risk stratification for hip surgery. Essentially, he had a mechanical fall leading to hip fracture and needs surgical intervention. From the cardiac standpoint, history of bypass surgery on 15 years ago. It seems he saw cardiology just around that time but has not had any long-term follow-up. He states that he does get short of breath with moderate amounts of activity but otherwise getting around fine. He has not had any clear-cut anginal-type chest pains recently. Review of Systems 2 Review of Systems: Yes all other systems are reviewed and are negative Constitutional: Constitutional: Reports as per HPI and Reports no additional constitutional complaints Eyes: Eyes: Reports as per HPI and Denies no additional eye complaints ENT: Denies system reviewed and no additional complaints, except as documented and Reports as per HPI Cardiovascular: Cardiovascular: Reports as per HPI, Reports no additional cardiovascular complaints, Denies acrocyanosis, Denies cool extremities, Denies chest pain, Denies leg edema, Denies lightheadedness, Denies palpitations and Reports dyspnea Respiratory: Respiratory: Reports as per HPI, Denies no additional respiratory complaints and Reports dyspnea Gastrointestinal: Gastrointestinal: Reports as per HPI and Denies no additional gastrointestinal complaints Genitourinary: Genitourinary: Reports no additional male genitourinary complaints and Reports as per HPI Musculoskeletal: Musculoskeletal: Reports no additional musculoskeletal complaints and Reports as per HPI Integumentary/Breasts: Skin/Breast: Reports system reviewed and no additional complaints, except as docu Neurologic: Reports system reviewed and no additional complaints, except as documented and Reports as per HPI Psychiatric: Psychiatric: Reports no additional psychiatric complaints and Reports as per HPI Endocrine: Endocrine: Reports no additional endocrine complaints, Reports as per HPI and Denies palpitations Hematologic/Lymphatic: Hematologic/Lymphatic: Reports no additional hematologic/lymphatic complaints and Reports as per HPI Allergic/Immunologic: Allergic/Immunologic: Reports no additional allergic/immunologic complaints and Reports as per HPI [facility] Past Medical History Medical History (Updated 10/18/25 @ 09:31 by Chriss Hightower MD) Coronary artery disease HLD (hyperlipidemia) HTN (hypertension) Family History Pertinent family history: No pertinent family history Surgical History Surgical History (Updated 10/18/25 @ 07:54 by Inge Faust RN) S/P CABG x 2 Social History Social History Household Members: None Housing: House Do you presently have visiting nurse or other home services: No Patient Tobacco Use Status: Never used Tobacco Smoked in Last 30 Days: No Use of substances other than those prescribed or required for medical reasons: No Have you been hit, kicked, punched, or otherwise hurt by someone within the past year? If so, by whom?: No Do you feel safe in your current relationship?: No Current Relationship Is there a partner from a previous relationship who is making you feel unsafe now?: No Are you made to feel afraid or neglected: No Advance Directives: Yes Advance Directives Information Provided: No Advance Directives on File: No Advance Directives Date on File: 10/18/25 Do you have a plan to hurt others: No Plan Recently lost weight without trying: Yes How much weight loss: 24-33 pounds Eating poorly because of decreased appetite: Yes Nutrition screen score: 6 Nutrition Risks: Poor intake 0-25% >4 days Meds Allergies Allergy/AdvReac Type Severity Reaction Status Date / Time No Known Allergies Allergy Verified 10/17/25 15:29 Active Medications: Current Medications Acetaminophen (Acetaminophen 325 Mg Tablet) 650 mg PO Q6H PRN PRN Reason: Pain, Mild 1-3,fever,headache Last Admin: 10/18/25 06:44 Dose: 650 mg Artificial Tears (Artificial Tears 15 Ml Drops) 1 drop EYE-BOTH QID SWAPNA Calcium Carbonate (Calcium Carbonate 750 Mg Tab.Chew) 750 mg PO Q4H PRN PRN Reason: Heartburn Enoxaparin Sodium (Enoxaparin Sodium 40 Mg/0.4 Ml Syringe) 40 mg SUBCUT Q24H SWAPNA Last Admin: 10/17/25 18:47 Dose: 40 mg Hydromorphone HCl (Hydromorphone Hcl 1 Mg/Ml Syringe) 1 mg IVPUSH Q4H PRN; Protocol PRN Reason: Pain, Severe (Pain Scale 7-10) Magnesium Hydroxide (Milk Of Magnesia 30 Ml Oral.Susp) 30 ml PO DAILY PRN PRN Reason: Constipation Melatonin (Melatonin 3 Mg Tablet) 6 mg PO BEDTIME PRN PRN Reason: Insomnia Metoprolol Tartrate (Metoprolol Tartrate 25 Mg Tablet) 25 mg PO BID [facility]; Protocol Ondansetron HCl (Ondansetron Hcl 4 Mg/2 Ml Vial) 4 mg IVPUSH Q8H PRN PRN Reason: Nausea and Vomiting Oxycodone HCl (Oxycodone Hcl Immed Release 5 Mg Tablet) 10 mg PO Q4H PRN PRN Reason: Pain, Moderate(Pain Scale 4-6) Last Admin: 10/17/25 22:57 Dose: 10 mg Paroxetine HCl (Paroxetine Hcl 30 Mg Tablet) 30 mg PO DAILY [facility] Polyethylene Glycol (Polyethylene Glycol 3350 17 Gm Powd.Pack) 17 gm PO DAILY [facility] Pravastatin Sodium (Pravastatin Sodium 40 Mg Tablet) 40 mg PO BEDTIME [facility] Quetiapine Fumarate (Quetiapine Fumarate 25 Mg Tablet) 25 mg PO BEDTIME [facility] Senna/Docusate Sodium (Sennosides/Docusate Sodium Tablet) 2 tab PO DAILY [facility] Sodium Chloride (0.9 % Sodium Chloride Flush 3 Ml Syringe) [facility] Last Admin: 10/18/25 07:57 Dose: 3 ml Tamsulosin HCl (Tamsulosin Hcl 0.4 Mg Capsule) 0.4 mg PO BEDTIME [facility] Home Medications ?Medication ?Instructions ?Recorded ?Confirmed ?Last Taken ?Type aspirin 81 mg tablet 81 mg PO DAILY 10/17/2510/0110/17/25 09:00 History carboxymethylcellulose sodium 0.5 1 drp ophthalmic (ey e) QID 10/17/25 10/17/25 10/17/25 09:00 History % eye drops metoprolol tartrate 25 mg tablet 25 mg PO BID 10/17/25 10/17/25 10/17/25 09:00 History paroxetine HCl 30 mg tablet 30 mg PO DAILY 10/17/2510/17/25 09:00 History polyethylene glycol 3350 17 17 g PO DAILY 10/17/2510/17/25 09:00 History gram/dose oral powder pravastatin 40 mg tablet 40 mg PO BEDTIME 10/17/2510/16/25 History quetiapine 25 mg tablet 25 mg PO BEDTIME 10/17/2510/16/25 History sennosides 8.6 mg-docusate sodium 2 tab-cap PO DAILY 1 12/17/24 10/17/25 10/17/25 09:00 History 50 mg tablet (Senna with Docusate Sodium) sildenafil 100 mg tablet 100 mg PO DAILY PRN Sexual A ctivity 10/17/25 10/17/25 Unknown History tadalafil 20 mg tablet 20 mg PO DAILY PRN Sexual Ac tivity 10/17/25 10/17/25 Unknown History tamsulosin 0.4 mg capsule 0.4 mg PO BEDTIME 10/17/25 1 12/17/24 10/16/25 History Physical Exam 2 Vital Signs: Vital Signs: Last Vital Signs Temp 98.7 F 10/18/25 06:45 Pulse 74 10/18/25 06:45 Resp 20 10/18/25 06:45 BP 136/81 10/18/25 06:45 Pulse Ox 92 10/18/25 06:45 O2 Del Method Nasal Cannula 10/18/25 06:45 O2 Flow Rate 3 10/18/25 06:45 BMI result Body Mass Index 34.6 Const: General: comfortable and no acute distress O rientation/consciousness: patient oriented x3 HEENT: Other: Unremarkable Head: Yes normal to inspection Neck: Neck: Yes normal visual inspection Chest: Chest palpation & inspection: normal inspection of the chest Resp: Auscultation: clear to auscultation bilaterally Cardio: Palpation: normal PMI Heart sounds: S1 normal heart sound present, S2 normal heart sound present, no gallops, no murmurs and no rubs GI: Palpation (GI): Soft to palpation Back/Spine/Pelvis: Other: unremarkable Skin: General skin exam: no rashes or lesions noted Neuro: General: patient oriented x3 Extrem: General: Yes normal to inspection Psych: Mental Status: mental status grossly normal Objective Labs and Meds 10/17/25 15:57 10/17/25 15:57 Lab results: Laboratory Results - last 24 hr 10/17/25 10/18/25 15:57 08:15 WBC 7.4 RBC 5.39 Hgb 16.1 Hct 48.2 MCV 89.4 MCH 29.9 MCHC 33.4 RDW 12.6 Plt Count 156 L MPV 9.4 Immature Gran % (Auto) 0.4 Neut % (Auto) 68.4 Lymph % (Auto) 20.6 [place] % (Auto) 6.8 Eos % (Auto) 2.4 Baso % (Auto) 1.4 Lymph # (Auto) 1.5 [place] # (Auto) 0.5 Eos # (Auto) 0.2 Baso # (Auto) 0.1 Abs Immat Gran (auto) 0.03 Absolute Neuts (auto) 5.1 Absolute Nucleated RBC 0.000 Nucleated RBC % (auto) 0.0 Sodium 142 Potassium 4.1 Chloride 107 Carbon Dioxide 29 Anion Gap 10 L BUN 14 Creatinine 0.69 Estim Creat Clear Calc 92.8 Estimated GFR > 60 Random Glucose 86 Calcium 8.8 Total Bilirubin 1.9 H Direct Bilirubin 0.4 AST 30 ALT 23 Alkaline Phosphatase 95 Troponin I High Sens < 2.7 Total Protein 6.3 L Albumin 3.8 Lipase 57 Influenza Type A (PCR) NEGATIVE Influenza Type B (PCR) NEGATIVE RSV RNA Qual (PCR) NEGATIVE SARS-CoV-2 RNA (RT-PCR) NEGATIVE Blood Type O Positive Antibody Screen NEGATIVE ECG Interpretation: EKG with underlying sinus rhythm at 66/Min; prolonged KS interval to 240 millisecond; nonspecific ST-T changes. No prior EKG for comparison. Imaging Radiologist's impression: Impressions Cervical Spine CT 10/17/25 16:20 IMPRESSION: No acute fracture is identified. There is mild reversal of cervical lordosis. This can be related to degenerative changes, positioning, muscle spasm, or posterior soft tissue injury. Electronically signed by: Greg Khalil MD 10/17/2025 04:58 PM EST RP Head CT 10/17/25 16:20 IMPRESSION: No acute intracranial abnormality. Periventricular hypodensities are likely related to chronic small vessel disease. Electronically signed by: Greg Khalil MD 10/17/2025 04:54 PM EST RP Hip/Pelvis X-Ray 10/17/25 16:36 IMPRESSION: There is an acute left femoral neck fracture. There is mild bilateral hip osteoarthritis. Electronically signed by: Greg Khalil MD 10/17/2025 05:02 PM EST RP Chest X-Ray 10/17/25 16:37 IMPRESSION: No acute disease Low lung volumes. Electronically signed by: Greg Khalil MD 10/17/2025 05:07 PM EST RP Assessment and Plan (1) Preoperative cardiovascular examination: Status: Acute (2) Coronary artery disease: Qualifiers: Coronary Disease-Associated Artery/Lesion type: unspecified vessel or lesion type [place] vs. transplanted heart: [place] heart Associated angina: u nspecified whether angina present Qualified Code(s): I25.10 - Atherosclerotic heart disease of [place] coronary artery without angina pectoris Status: Acute Plan Essentially mechanical fall, hip fracture requiring surgical intervention and history of prior coronary bypass with longstanding exertional shortness of breath. We can get an echocardiogram to assess for any cardiomyopathy. If no obvious abnormalities, then would be intermediate risk. Otherwise, the risk would be intermediate to high. Either way, as there are no other options, may plan to proceed with surgery after the echocardiogram. Perioperative cardiac risks including myocardial infarction discussed with patient. Procedures Date of Service Date of Service: 10/18/25
--- NOTE | 2025-10-18 10:11 | PC.NURSE ---
waiting for missing meds to come from pharmacy
[2025-10-18] MEDS: Artificial Tears 15 ML DROPS 1 DROP EYE-BOTH (11:15)
--- NOTE | 2025-10-18 11:18 | PC.NURSE ---
per Dr. Hernandez, pt ok to take po meds with a small sip of water.
--- NOTE | 2025-10-18 11:24 | HO.NURTONUR ---
patient a&ox3, came in to the ED after taking out the trash and tripped on the curb and fell. pt dx with left femoral neck fracture. no loc/no thinners. rr equal/non labored- lungs clear, wearing 3L NC as his O2 dipped when he got morphine earlier this morning. he was given morphine without relief of the pain- Dr. Gibbs changed the order to dilaudid which has given him some relief. has + csm/pulses to LLE, pt has been NPO except for small sip for his medications ok'd by dr. gibbs. he had a bedside echo and cardiology consult, he is awaiting the OR- the OR is waiting on the Echo report and clearance by cardiology to take him so he is going to the floor first as the report isnt in yet.
--- NOTE | 2025-10-18 13:00 | PC.NURSE ---
Patient left unit to OR
[2025-10-18] MEDS: Lactated Ringers 1,000 ML 50 ML IVCONT ×2 (14:08→18:58)
--- NOTE | 2025-10-18 15:54 | P.PNIM_ITS ---
Subjective Subjective Date of Service: 10/18/25 Interval History: No acute issues overnight. Pain control adequate Review of Systems Denies chest pain Denies shortness of breath Denies nausea vomiting diarrhea Denies fever chills Physical Exam 2 Vital Signs: Vital Signs: Last Vital Signs Temp 98.5 F 10/18/25 13:11 Pulse 64 10/18/25 13:11 Resp 18 10/18/25 13:11 BP 106/59 L 10/18/25 13:11 Pulse Ox 93 10/18/25 13:11 O2 Del Method Nasal Cannula 10/18/25 13:11 O2 Flow Rate 3 10/18/25 13:11 BMI result Body Mass Index 34.6 Const: Other: Awake alert uncomfortable appearing lying quietly in stretcher Resp: Other: Clear to auscultation bilaterally no rales rhonchi or wheezes Cardio: Other: No S4; positive S1-S2; no S3 murmurs rubs or gallops GI: Other: Soft nontender nondistended normoactive bowel sounds Neuro: Other: Cranial nerves 2-12 grossly intact as tested. Motor is 5/5 on the right side left exam limited by fracture. Cognition appropriate Extrem: Other: No edema bilaterally Objective Data Active Medications Acetaminophen (Acetaminophen 325 Mg Tablet) 650 mg PO Q6H PRN PRN Reason: Pain, Mild 1-3,fever,headache Last Admin: 10/18/25 06:44 Dose: 650 mg Documented By: BRYCE Artificial Tears (Artificial Tears 15 Ml Drops) 1 drop EYE-BOTH QID [facility] Last Admin: 10/18/25 11:18 Dose: Not Given Documented By: ESTEPHANIA Non-Admin Reason: See Note Calcium Carbonate (Calcium Carbonate 750 Mg Tab.Chew) 750 mg PO Q4H PRN PRN Reason: Heartburn Enoxaparin Sodium (Enoxaparin Sodium 40 Mg/0.4 Ml Syringe) 40 mg SUBCUT Q24H [facility] Last Admin: 10/17/25 18:47 Dose: 40 mg Documented By: ANIKET Hydromorphone HCl (Hydromorphone Hcl 1 Mg/Ml Syringe) 1 mg IVPUSH Q4H PRN; Protocol PRN Reason: Pain, Severe (Pain Scale 7-10) Last Admin: 10/18/25 09:36 Dose: 1 mg Documented By: ESTEPHANIA Hydromorphone HCl (Hydromorphone Hcl 0.5 Mg/0.5 Ml Syringe) 0.25 mg IVPUSH Q5M PRN PRN Reason: Pain, Moderate to Severe (Pain Scale 4-10) Stop: 10/18/25 21:19 Lactated Ringer's (Lr) 1,000 mls @ 50 mls/hr IVCONT .Q20H [facility] Last Admin: 10/18/25 14:08 Dose: 50 mls/hr Documented By: JOYCELYN Magnesium Hydroxide (Milk Of Magnesia 30 Ml Oral.Susp) 30 ml PO DAILY PRN PRN Reason: Constipation Melatonin (Melatonin 3 Mg Tablet) 6 mg PO BEDTIME PRN PRN Reason: Insomnia Metoprolol Tartrate (Metoprolol Tartrate 25 Mg Tablet) 25 mg PO BID [facility]; Protocol Last Admin: 10/18/25 11:14 Dose: 25 mg Documented By: ESTEPHANIA Naloxone HCl (Naloxone Hcl 0.4 Mg/Ml Vial) 0.04 mg IVPUSH Q5M PRN PRN Reason: Excessive sedation or RR < 8 Ondansetron HCl (Ondansetron Hcl 4 Mg/2 Ml Vial) 4 mg IVPUSH Q8H PRN PRN Reason: Nausea and Vomiting Ondansetron HCl (Ondansetron Hcl 4 Mg/2 Ml Vial) 4 mg IVPUSH ONCE PRN PRN Reason: Nausea and Vomiting Stop: 10/18/25 21:19 Oxycodone HCl (Oxycodone Hcl Immed Release 5 Mg Tablet) 10 mg PO Q4H PRN PRN Reason: Pain, Moderate(Pain Scale 4-6) Last Admin: 10/17/25 22:57 Dose: 10 mg Documented By: BRYCE Oxycodone HCl (Oxycodone Hcl Immed Release 5 Mg Tablet) 5 mg PO ONCE PRN PRN Reason: Pain, Moderate(Pain Scale 4-6) if no IV Access Stop: 10/18/25 21:19 Paroxetine HCl (Paroxetine Hcl 30 Mg Tablet) 30 mg PO DAILY [facility] Last Admin: 10/18/25 11:13 Dose: 30 mg Documented By: ESTEPHANIA Polyethylene Glycol (Polyethylene Glycol 3350 17 Gm Powd.Pack) 17 gm PO DAILY [facility] Last Admin: 10/18/25 10:10 Dose: Not Given Documented By: ESTEPHANIA Non-Admin Reason: NPO Pravastatin Sodium (Pravastatin Sodium 40 Mg Tablet) 40 mg PO BEDTIME SWAPNA Quetiapine Fumarate (Quetiapine Fumarate 25 Mg Tablet) 25 mg PO BEDTIME [facility] Senna/Docusate Sodium (Sennosides/Docusate Sodium Tablet) 2 tab PO DAILY [facility] Last Admin: 10/18/25 11:14 Dose: 2 tab Documented By: ESTEPHANIA Sodium Chloride (0.9 % Sodium Chloride Flush 3 Ml Syringe) 3 ml IVFLUSH QSHIFT [facility] Last Admin: 10/18/25 07:57 Dose: 3 ml Documented By: ESTEPHANIA Tamsulosin HCl (Tamsulosin Hcl 0.4 Mg Capsule) 0.4 mg PO BEDTIME [facility] Labs 10/17/25 15:57 10/17/25 15:57 Labs: Laboratory Results - last 24 hr 10/17/25 10/18/25 15:57 08:15 MCV 89.4 MCH 29.9 MCHC 33.4 RDW 12.6 Plt Count 156 L MPV 9.4 Immature Gran % (Auto) 0.4 Neut % (Auto) 68.4 Lymph % (Auto) 20.6 [place] % (Auto) 6.8 Eos % (Auto) 2.4 Baso % (Auto) 1.4 Lymph # (Auto) 1.5 [place] # (Auto) 0.5 Eos # (Auto) 0.2 Baso # (Auto) 0.1 Abs Immat Gran (auto) 0.03 Absolute Neuts (auto) 5.1 Absolute Nucleated RBC 0.000 Nucleated RBC % (auto) 0.0 Anion Gap 10 L Estim Creat Clear Calc 92.8 Estimated GFR > 60 Random Glucose 86 Calcium 8.8 Total Bilirubin 1.9 H Direct Bilirubin 0.4 AST 30 ALT 23 Alkaline Phosphatase 95 Troponin I High Sens < 2.7 Total Protein 6.3 L Albumin 3.8 Lipase 57 Influenza Type A (PCR) NEGATIVE Influenza Type B (PCR) NEGATIVE RSV RNA Qual (PCR) NEGATIVE SARS-CoV-2 RNA (RT-PCR) NEGATIVE Blood Type O Positive Antibody Screen NEGATIVE Assessment and Plan (1) Closed fracture of neck of left femur: Status: Acute (2) Coronary artery disease: Status: Acute Plan 85-year-old male with past medical history significant for hypertension hyperlipidemia and coronary artery disease presents after mechanical fall with a left femoral neck fracture. 1. Left femoral neck fracture -as per ortho -morphine/oxycodone for pain management 2. Coronary artery disease (status post bypass grafting greater than 10 years remote) -limited cardiac follow up per patient -2D echo noted -cardiology ... Intermediate risk 3. Hyperlipidemia -continue statin and outpatient dosing Full code Lovenox Quality Stroke Does the patient have a stroke diagnosis?: No VTE Prior VTE?: No VTE Risk Level:: Medical - moderate - high VTE Device Contraindication: Treatment Not Indicated VTE Drug Contraindication: N/A - Med Ordered
--- NOTE | 2025-10-18 17:08 | PM.OP ---
Brief Operative Note Date of Service: 10/18/25 Pre-op diagnosis: Left hip displaced femoral neck fracture Post-op diagnosis: same Procedure: Left hip cemented bipolar hemiarthroplasty Implants: Stover Accolade C femoral stem size 3 with a 132 degree neck-shaft angle, femoral head size 26 with a-3 mm neck, femoral shell size 52, distal centralizer size 10, a small cement plug Surgeon: Anderson Sexton MD Anesthesia: GETA Was an Press Operator Carbon Blocks used for this Procedure?: Yes Press Operator Carbon Blocks: Uma Joy Estimated blood loss (mL): 150 Pathology: other Condition: stable Disposition: PACU
--- NOTE | 2025-10-18 17:09 | W.PM.OPN ---
Operative Note Operative Note Date of Service: 10/18/25 Narrative: After the patient was identified as Eric Collins and his left hip was initialed by myself the patient was brought to the operating room where general anesthesia was induced by the anesthesiologist in routine fashion. The patient was given 2 g of IV Ancef for infection prophylaxis. The patient was then gently rolled into the lateral position. An axillary roll was put into place. All bony prominences were well padded. The patient's pelvis was held securely with hip bolsters. The patient's left hip region and lower extremity were prepped and draped in sterile fashion. A #10 scalpel blade was then used to make a curvilinear incision centered over the greater trochanter. The subcutaneous tissues were dissected using electrocautery down to the fascia javier. The fascia javier was then split in line with the skin incision using electrocautery. The split in the fascia javier was curved posteriorly along its cephalad aspect to help prevent injury to the innervation of the tensor fascia javier muscle. The patient's leg was gently externally rotated. A lateral Wyman approach was then taken down to the anterior joint capsule. The anterior half of the vastus lateralis was split 1 cm from its insertion and tagged with #2 Ethibond suture. The anterior 1/3 of the gluteus medius incision was then split using electrocautery and tagged with #2 Ethibond suture. An anterior capsulectomy was then performed using electrocautery. The femoral neck fracture was identified. The patient's lower extremity was gently externally rotated. The femoral neck cut was made 1 cm proximal to the lesser trochanter. The femoral head was then removed using a corkscrew. The femoral head measured to be a size 52. The trial size 52 femoral head was put into the acetabulum. The trial fit well. The trial was removed. The acetabulum was irrigated with copious amounts of normal saline solution via pulse lavage. The patient's leg was then placed into a sterile pouch along the anterior aspect of the surgical suite table. Soft tissues were retracted around the proximal femur. A box cutting osteotome was used to make a groove in the medial aspect of the greater trochanter. Broaching was begun with a size 0 press-fit broach. Broaching was increased up to a size 3 cemented broach. The size 3 broach fit well. The broach was removed. The distal centralizer was measured to be a size 10. A small cement plug was put into place. The intramedullary canal was irrigated with copious amounts of normal saline solution via pulse lavage while the cement was mixed. Once the cement reached a doughy state it was pressurized into the intramedullary canal. The final implant was put into place. Once the cement had hardened a trial size 52 shell with a -3 mm neck was put into place. The hip was reduced. Leg lengths were clinically equal. The hip was taken through a full range of motion. There was no instability. The hip was dislocated and the patient's leg was placed into the sterile pouch. The trial head was removed. The wound was irrigated with copious amounts of normal saline solution via pulse lavage. The final head and shell were impacted in the place. Leg lengths were clinically equal. Hip was taken through a full range of motion. There was no instability. The patient's leg was then placed onto a well-padded Cyr stand. The wound was once again irrigated. The vastus lateralis and tensor fascia javier tendons were repaired with #2 Ethibond [id number] interrupted suture. The wound was once again irrigated. The fascia javier was closed with #2 Ethibond [id number] interrupted suture as well as #1 Vicryl [id number] interrupted suture. The wound was once again irrigated. The subcutaneous tissues were closed with 0 Vicryl and 2-0 Vicryl interrupted suture. The skin was closed with skin jose. Dry sterile dressing was placed over the incision. The patient was gently rolled into the supine position. The patient was awoken and extubated in the operating room. The patient was transferred to the recovery room in stable condition. Justification for PA Telemarketing Representative: The complexity of this hip hemiarthroplasty, involving significant bony deformity and soft tissue releases, necessitates the assistance of a qualified surgical product sales consultant for optimal surgical exposure, hemostasis and efficient execution of the procedure.
[2025-10-19] VITALS (14 sets, daily range): BP systolic 91–127; BP diastolic 50–63; PULSE 70–100; RESP 16–80; TEMP 36.2–37.7; O2SAT 85–95
[2025-10-19 01:59] LABS: Appearance Urine Clear; Glucose Urine UA Negative (Negative); PH 5.0 (5.0-9.0); Specific Gravity - Urine >= 1.030 (1.005-1.025)
--- NOTE | 2025-10-19 08:14 | HO.POSTANES ---
Post Anesthesia Evaluation Post Anesthesia Evaluation Date of Service: 10/19/25 Vital Signs: Vital Signs Temp Pulse Resp BP Pulse Ox O2 Del Method O2 Flow Rate 10/19/25 06:00 98.1 F 74 16 118/57 L 94 Nasal Cannula 3 10/19/25 02:00 97.1 F 70 18 106/58 L 93 Nasal Cannula 3 10/18/25 22:00 97.2 F 73 18 90/60 93 Nasal Cannula 3 Anesthesia: General Mental Status: Awake Pain Control: Satisfactory Nausea/Vomiting: None Hydration: Adequate Anesthesia-Related Issues: No Anes. Related Issues
[2025-10-19] MEDS: Lactated Ringers 1,000 ML 50 ML IVCONT (09:12)
--- NOTE | 2025-10-19 09:14 | PC.NURSE ---
BP checked before administer scheduled medication. SBP<100 (refer to flowsheet), manual checked. Patient c/o dizziness but denied chestpain or SOB. Provider Mary notified via tigerconnect and provider came to bedside and assessed patient.
--- NOTE | 2025-10-19 09:23 | PM.PNORT ---
Subjective Subjective Date of Service: 10/19/25 Interval history: POD1 s/p left hip robert Patient is resting in bed comfortably No overnight events Pain is managed No additional complaints Physical Exam Vital Signs: Vital Signs: Last Vital Signs Temp 98.1 F 10/19/25 06:00 Pulse 74 10/19/25 06:00 Resp 16 10/19/25 06:00 BP 118/57 L 10/19/25 06:00 Pulse Ox 94 10/19/25 06:00 O2 Del Method Nasal Cannula 10/19/25 06:00 O2 Flow Rate 3 10/19/25 06:00 BMI result Body Mass Index 34.6 Const: General: cooperative, healthy appearing and no acute distress Resp: Effort & Inspection: normal respiratory effort and able to speak in complete sentences Extrem: Other: left hip dressing is c/d/i. Able to dorsi/plantar flex. Calf is supple and nontender. Sensation intact. Pedal pulse intact. Psych: Appearance: grossly normal Mental Status: mental status grossly normal Attitude: cooperative Procedures Date of Service Date of Service: 10/19/25 Progress Note: A&P Assessment and plan (1) Closed fracture of neck of left femur: Status: Acute (2) Status post hemiarthroplasty of left hip: Status: Acute Plan Continue pain mgmnt Lovenox for dvt ppx begin PT/OT for left hip robert - WBAT Dispo planning-Pending PT/OT eval, pain mgmnt, march d/c to rehab once medically cleared Time Spent With Patient Time: Total time managing care of this patient today ____ minutes. Quality Stroke Does the patient have a stroke diagnosis?: No VTE Prior VTE?: No VTE Risk Level:: Medical - moderate - high VTE Device Contraindication: Treatment Not Indicated VTE Drug Contraindication: N/A - Med Ordered
[2025-10-19] MEDS: 0.9 % Sodium Chloride Flush 3 ML SYRINGE IVFLUSH ×2 (09:29→21:23)
--- NOTE | 2025-10-19 09:29 | MHC.CM.PN ---
pt lives alone has no previous services it is likely pt will nee rehab hcp completed await pt eval
[2025-10-19 09:30] LABS: Hematocrit 37.9 % (42.0-52.0); Hemoglobin 12.2 g/dl (14.0-18.0)
[2025-10-19 09:50] LABS: Alanine Aminotransferase 18 U/L (0-40); Albumin Level 3.0 g/dL (3.5-5.0); Alkaline Phosphatase 72 U/L (39-117); Anion Gap 10 (12-20); Aspartate Amino Transferase 41 U/L (5-37); Blood Urea Nitrogen 23 mg/dL (9-16); Carbon Dioxide 26 mmol/L (22-29); Chloride 103 mmol/L (96-108); Creatinine Clr Calc Pharmacy 75.3; Estimated Glomerular Filt Rate > 60; Potassium 4.0 mmol/L (3.3-5.1); Sodium 135 mmol/L (135-145); Total Protein 5.3 g/dL (6.5-8.0)
[2025-10-19 09:55] LABS: Calcium 8.1 mg/dL (8.4-10.2)
--- NOTE | 2025-10-19 12:57 | HO.PM.IMPN ---
Subjective Subjective Date of Service: 10/19/25 Interval History: No acute issues overnight related to surgery. [place] somewhat dizzy and ?hung over? this a.m. which he attributes to anesthesia Review of Systems Denies chest pain Denies shortness of breath Denies nausea vomiting diarrhea Denies fever chills Physical Exam Vital Signs: Vital Signs: Last Vital Signs Temp 98.7 F 10/19/25 11:48 Pulse 81 10/19/25 11:48 Resp 16 10/19/25 11:48 BP 109/56 L 10/19/25 11:48 Pulse Ox 92 10/19/25 11:48 O2 Del Method Nasal Cannula 10/19/25 11:48 O2 Flow Rate 2 10/19/25 11:48 BMI result Body Mass Index 34.6 Const: Other: Awake alert uncomfortable appearing lying quietly in stretcher Resp: Other: Clear to auscultation bilaterally no rales rhonchi or wheezes Cardio: Other: No S4; positive S1-S2; no S3 murmurs rubs or gallops GI: Other: Soft nontender nondistended normoactive bowel sounds Neuro: Other: Cranial nerves 2-12 grossly intact as tested. Motor is 5/5 on the right side left exam limited by fracture. Cognition appropriate Extrem: Other: No edema bilaterally Objective Data Active Medications Acetaminophen (Acetaminophen 325 Mg Tablet) 650 mg PO Q6H PRN PRN Reason: Pain, Mild 1-3,fever,headache Last Admin: 10/19/25 07:27 Dose: 650 mg Documented By: SUSY Artificial Tears (Artificial Tears 15 Ml Drops) 1 drop EYE-BOTH QID [facility] Last Admin: 10/19/25 09:57 Dose: Not Given Documented By: SUSY Non-Admin Reason: Med Not Available Calcium Carbonate (Calcium Carbonate 750 Mg Tab.Chew) 750 mg PO Q4H PRN PRN Reason: Heartburn Enoxaparin Sodium (Enoxaparin Sodium 40 Mg/0.4 Ml Syringe) 40 mg SUBCUT Q24H [facility] Last Admin: 10/18/25 19:03 Dose: 40 mg Documented By: DOBROB Hydromorphone HCl (Hydromorphone Hcl 1 Mg/Ml Syringe) 1 mg IVPUSH Q4H PRN; Protocol PRN Reason: Pain, Severe (Pain Scale 7-10) Last Admin: 10/18/25 09:36 Dose: 1 mg Documented By: ESTEPHANIA Lactated Ringer's (Lr) 1,000 mls @ 50 mls/hr IVCONT .Q20H [facility] Last Admin: 10/19/25 09:12 Dose: 50 mls/hr Documented By: SUSY Comments: new bag stared for new IV placement Cefazolin Sodium/Dextrose (Ancef) 2 gm in 50 mls @ 100 mls/hr IV Q8H [facility] Stop: 10/19/25 14:00 Last Infusion: 10/19/25 09:52 Dose: Infused Documented By: SUSY Magnesium Hydroxide (Milk Of Magnesia 30 Ml Oral.Susp) 30 ml PO DAILY PRN PRN Reason: Constipation Melatonin (Melatonin 3 Mg Tablet) 6 mg PO BEDTIME PRN PRN Reason: Insomnia Metoprolol Tartrate (Metoprolol Tartrate 25 Mg Tablet) 25 mg PO BID [facility]; Protocol Last Admin: 10/19/25 09:29 Dose: Not Given Documented By: SUSY Non-Admin Reason: Physician Held Med Naloxone HCl (Naloxone Hcl 0.4 Mg/Ml Vial) 0.04 mg IVPUSH Q5M PRN PRN Reason: Excessive sedation or RR < 8 Ondansetron HCl (Ondansetron Hcl 4 Mg/2 Ml Vial) 4 mg IVPUSH Q8H PRN PRN Reason: Nausea and Vomiting Oxycodone HCl (Oxycodone Hcl Immed Release 5 Mg Tablet) 10 mg PO Q4H PRN PRN Reason: Pain, Moderate(Pain Scale 4-6) Last Admin: 10/17/25 22:57 Dose: 10 mg Documented By: BRYCE Paroxetine HCl (Paroxetine Hcl 30 Mg Tablet) 30 mg PO DAILY [facility] Last Admin: 10/19/25 09:26 Dose: 30 mg Documented By: SUSY Polyethylene Glycol (Polyethylene Glycol 3350 17 Gm Powd.Pack) 17 gm PO DAILY [facility] Last Admin: 10/19/25 09:56 Dose: Not Given Documented By: SUSY Non-Admin Reason: Patient Refused Pravastatin Sodium (Pravastatin Sodium 40 Mg Tablet) 40 mg PO BEDTIME [facility] Last Admin: 10/18/25 20:04 Dose: 40 mg Documented By: BARBY Quetiapine Fumarate (Quetiapine Fumarate 25 Mg Tablet) 25 mg PO BEDTIME [facility] Last Admin: 10/18/25 20:04 Dose: 25 mg Documented By: BARBY Senna/Docusate Sodium (Sennosides/Docusate Sodium Tablet) 2 tab PO DAILY [facility] Last Admin: 10/19/25 09:26 Dose: 2 tab Documented By: SUSY Sodium Chloride (0.9 % Sodium Chloride Flush 3 Ml Syringe) 3 ml IVFLUSH QSHIFT [facility] Last Admin: 10/19/25 09:29 Dose: 3 ml Documented By: SUSY Tamsulosin HCl (Tamsulosin Hcl 0.4 Mg Capsule) 0.4 mg PO BEDTIME [facility] Last Admin: 10/18/25 20:04 Dose: 0.4 mg Documented By: BARBY Labs 10/19/25 09:21 10/19/25 09:21 Labs: Laboratory Results - last 24 hr 10/17/25 10/19/25 01:30 09:21 Anion Gap 10 L Estim Creat Clear Calc 75.3 Estimated GFR > 60 Random Glucose 246 H Calcium 8.1 L D Total Bilirubin 1.5 H AST 41 H ALT 18 Alkaline Phosphatase 72 Total Protein 5.3 L Albumin 3.0 L Urine Color Dark Yellow Urine Appearance Clear Urine pH 5.0 Ur Specific [place] >= 1.030 H Urine Protein Trace Urine Glucose (UA) Negative Urine Ketones Trace Urine Blood Negative Urine Nitrite Negative Ur Leukocyte Esterase Negative Assessment and Plan (1) Closed fracture of neck of left femur: Status: Acute (2) Coronary artery disease: Status: Acute Plan 85-year-old male with past medical history significant for hypertension hyperlipidemia and coronary artery disease presents after mechanical fall with a left femoral neck fracture. 1. Left femoral neck fracture -as per ortho -morphine/oxycodone for pain management 2. Coronary artery disease (status post bypass grafting greater than 10 years remote) -stable and well compensated after surgery -2D echo noted... Continue therapy 3. Hyperlipidemia -continue statin and outpatient dosing Full code Lovenox Quality Stroke Does the patient have a stroke diagnosis?: No VTE Prior VTE?: No VTE Risk Level:: Medical - moderate - high VTE Device Contraindication: Treatment Not Indicated VTE Drug Contraindication: N/A - Med Ordered
--- NOTE | 2025-10-19 14:47 | PC.NURSE ---
Nursing went in room and found patient appeared to be sleeping with nasal cannula on forehead. Nursing easily woke up patient, patient's spO2 was 85% on room air, patient denies SOB and conversing in complete sentences, encouraged patient to cough and deep breathe and increased to 87% on room air. 2L nasal cannula placed back on patient, patient performed incentive spirometer and spO2 increased to 92% on 2L nasal cannula. Patient educated on the need for supplemental oxygen at this time and verbalized understanding.
[2025-10-20] VITALS (10 sets, daily range): BP systolic 101–150; BP diastolic 54–80; PULSE 74–107; RESP 16–20; TEMP 36.9–38.2; O2SAT 89–94
[2025-10-20] MEDS: Lactated Ringers 1,000 ML 50 ML IVCONT (03:39)
--- NOTE | 2025-10-20 05:28 | PC.NURSE ---
Pt seen on bed alert and oriented,left hip surgical site with dressing CDI, ice pack provided, pt c/o pain but refused narcotics, BROOKLYN Castorena notified on any pain med option, ordered Toradol IV, and also suggested to notify Ortho, Rajani Brennan notified, ice pack applied, pt was asleep when revisited, awaken later, Toradol given, slept after, pt still with some confusion upon waking up and impulsiveness, pt was redirected and reoriented, need met.
--- NOTE | 2025-10-20 07:41 | PM.PNORT ---
Subjective Subjective Date of Service: 10/20/25 Interval history: POD2 s/p left hip robert Patient is resting in bed comfortably No overnight events Pain is managed No additional complaints Physical Exam Vital Signs: Vital Signs: Last Vital Signs Temp 98.4 F 10/20/25 03:09 Pulse 88 10/20/25 03:09 Resp 20 10/20/25 03:09 BP 119/56 L 10/20/25 03:09 Pulse Ox 93 10/20/25 03:09 O2 Del Method Nasal Cannula 10/20/25 03:09 O2 Flow Rate 2 10/20/25 03:09 BMI result Body Mass Index 34.6 Const: General: cooperative, healthy appearing and no acute distress Resp: Effort & Inspection: normal respiratory effort and able to speak in complete sentences Extrem: Other: left hip dressing is c/d/i. Able to dorsi/plantar flex. Calf is supple and nontender. Sensation intact. Pedal pulse intact. Psych: Appearance: grossly normal Mental Status: mental status grossly normal Attitude: cooperative Procedures Date of Service Date of Service: 10/20/25 Progress Note: A&P Assessment and plan (1) Closed fracture of neck of left femur: Status: Acute (2) Status post hemiarthroplasty of left hip: Status: Acute Plan Continue pain mgmnt Lovenox for dvt ppx begin PT/OT for left hip robert - WBAT Dispo planning-Pending PT/OT eval, pain mgmnt, march d/c to rehab once medically cleared Time Spent With Patient Time: Total time managing care of this patient today ____ minutes. Quality Stroke Does the patient have a stroke diagnosis?: No VTE Prior VTE?: No VTE Risk Level:: Medical - moderate - high VTE Device Contraindication: Treatment Not Indicated VTE Drug Contraindication: N/A - Med Ordered
[2025-10-20] MEDS: 0.9 % Sodium Chloride Flush 3 ML SYRINGE IVFLUSH ×3 (08:27→20:42)
--- NOTE | 2025-10-20 09:15 | PM.DS ---
DS: Providers Provider Date of Service: 10/23/25 Date of admission: 10/17/25 17:27 Date of discharge: 10/23/25 Primary care physician: Unknown Physician Consults: 10/17/25 18:24 Consult to Cardiology Routine Consulting Provider: [facility] Reason for consultation: Preop risk stratification Has provider been notified: Yes DS: Diagnosis Discharge Diagnosis (1) Closed fracture of neck of left femur: Status: Acute (2) Status post hemiarthroplasty of left hip: Status: Acute DS: Summary Hospital Course Hospital Course: from initial hpi: 85-year-old male with past medical history significant for hypertension hyperlipidemia coronary artery disease status post CABG x2 proximally 15 years remote was taking out his trash cans when he suffered a mechanical fall landing on left hip. He also notes head strike to the trash can. In the emergency room head and neck CTA were negative for acute injury. Plain films demonstrate left femoral neck fracture. He will be admitted for orthopedic intervention hospital course: Patient was admitted for mechanical fall complicated by left femoral neck fracture. Underwent left hip hemiarthroplasty on 10/18/2025. Perioperative copmlicated by fevers and acute hypoxic respiratory failure due to atelectasis which improved with incentive spirometry. will be discharged to acute rehab. He will continue Lovenox for 6 weeks follow up with orthopedics. For coronary artery disease was continued on aspirin statin, for hyperlipidemia continued on statin. Time Attestation Discharge Coordination Time (in mins): 32 Quality: Safe Use of Opioids Does Pt have an Active Cancer Diagnosis on the Problem List?: No Quality: Stroke Does the patient have a stroke diagnosis?: No Physical Exam Exam: Exam: General: AO X 3, less distress Resp: diminsihed bilateral, accessory muscles used CVS: S1,S2,RRR GI: soft, non tender, non distended Neuro: motor grossly intact, alert Psych: appropriate affect, appropriate insight Vital Signs: Vital Signs: Last Vital Signs Temp 99.8 F 10/20/25 07:52 Pulse 93 10/20/25 07:52 Resp 18 10/20/25 07:52 BP 150/80 H 10/20/25 07:52 Pulse Ox 91 L 10/20/25 07:52 O2 Del Method Nasal Cannula 10/20/25 07:52 O2 Flow Rate 2 10/20/25 07:52 BMI result Body Mass Index 34.6 Const: General: cooperative, healthy appearing and no acute distress Resp: Effort & Inspection: normal respiratory effort and able to speak in complete sentences Extrem: Other: left hip dressing is c/d/i. Able to dorsi/plantar flex. Calf is supple and nontender. Sensation intact. Pedal pulse intact. Psych: Appearance: grossly normal Mental Status: mental status grossly normal Attitude: cooperative DS: Data Data Completed and Pending Pending studies at discharge: Pending at discharge 10/18/25 16:24 Surgical [PTH] Routine Labs on day of discharge: Laboratory Results - last 24 hr 10/19/25 09:21 Hgb 12.2 L D Hct 37.9 L D Sodium 135 Potassium 4.0 Chloride 103 Carbon Dioxide 26 Anion Gap 10 L BUN 23 H Creatinine 0.85 Estim Creat Clear Calc 75.3 Estimated GFR > 60 Random Glucose 246 H Calcium 8.1 L D Total Bilirubin 1.5 H AST 41 H ALT 18 Alkaline Phosphatase 72 Total Protein 5.3 L Albumin 3.0 L Discharge Plan Discharge Anticipated Discharge Date/Time: 10/20/25 09:11 Patient Disposition: Xfer Inpatient Rehab Fac Discharge Diagnosis: hip fracture [facility]errals: [facility] [Other] - 1 Week Emma Lemons PA-C [Physician [employer]ware Software Verification Engineer, Orthopedics] - 2 Weeks Referral Note: 11/04/25 09:00 [facility] Emma Lemons PA-C Physician,Unknown J [Primary Care Provider, Medical] - 1 Week Discharge Medications: New enoxaparin 40 mg/0.4 mL Syringe 40 mg subcut Q24H Qty: 0 0RF oxycodone 5 mg Tablet 10 mg PO Q4H PRN (Reason: Pain, Moderate(Pain Scale 4-6)) Qty: 5 0RF Rx Instructions: Partial Fill upon patient request. Continued quetiapine 25 mg Tablet 25 mg PO BEDTIME pravastatin 40 mg Tablet 40 mg PO BEDTIME sennosides-docusate sodium [Senna with Docusate Sodium] 8.6-50 mg Tablet 2 tab-cap PO DAILY sildenafil 100 mg Tablet 100 mg PO DAILY PRN (Reason: Sexual Activity) Rx Instructions: administer 2 hours prior before sexual activity tamsulosin 0.4 mg Capsule 0.4 mg PO BEDTIME carboxymethylcellulose sodium 0.5 % Drops 1 drp OPHTHALMIC (EYE) QID paroxetine HCl 30 mg Tablet 30 mg PO DAILY aspirin 81 mg Tablet 81 mg PO DAILY polyethylene glycol 3350 17 gram/dose Powder 17 g PO DAILY tadalafil 20 mg Tablet 20 mg PO DAILY PRN (Reason: Sexual Activity) Rx Instructions: administer 2 hours prior before sexual activity metoprolol tartrate 25 mg Tablet 25 mg PO BID Discharge Orders: Discharge Order (Routine); Ordered 10/22/25 Ordered By: Collin Leal Diet: Advance to usual diet Activity on Discharge: As tolerated Stand Alone Forms: Patient Portal Discharge page Print Language: Bulgarian Care Plan Goals: recovery Health Concerns: hip fracture Plan of Treatment: Physical therapy for hip hemiarthroplasty: WBAT, posterior precautions, gait training, range of motion, strength Limit stair climbing No showering, no tub bath-keep dressing clean dry and intact No driving for 6 weeks Continue Lovenox once a day for 6 weeks Follow-up with [facility] in 2 weeks wean o2 as tolerated Assessment: see above
--- NOTE | 2025-10-20 11:44 | P.PNIM_ITS ---
Subjective Subjective Date of Service: 10/20/25 Interval History: feels poorly, sob, fever Physical Exam 2 Exam: Exam: General: AO X 3, ill appearing Resp: diminsihed bilateral, accessory muscles used CVS: S1,S2,RRR GI: soft, non tender, non distended Neuro: motor grossly intact, alert Psych: appropriate affect, appropriate insight Vital Signs: Vital Signs: Last Vital Signs Temp 100.8 F H 10/20/25 11:34 Pulse 84 10/20/25 11:34 Resp 16 10/20/25 11:34 BP 106/57 L 10/20/25 11:34 Pulse Ox 91 L 10/20/25 11:34 O2 Del Method Nasal Cannula 10/20/25 11:34 O2 Flow Rate 1 10/20/25 11:34 BMI result Body Mass Index 34.6 Objective Data Active Medications Acetaminophen (Acetaminophen 325 Mg Tablet) 650 mg PO Q6H PRN PRN Reason: Pain, Mild 1-3,fever,headache Last Admin: 10/20/25 10:26 Dose: 650 mg Documented By: YUNG Artificial Tears (Artificial Tears 15 Ml Drops) 1 drop EYE-BOTH QID [facility] Last Admin: 10/20/25 08:31 Dose: Not Given Documented By: YUNG Non-Admin Reason: pt refused Calcium Carbonate (Calcium Carbonate 750 Mg Tab.Chew) 750 mg PO Q4H PRN PRN Reason: Heartburn Enoxaparin Sodium (Enoxaparin Sodium 40 Mg/0.4 Ml Syringe) 40 mg SUBCUT Q24H [facility] Last Admin: 10/19/25 18:05 Dose: 40 mg Documented By: SUSY Hydromorphone HCl (Hydromorphone Hcl 1 Mg/Ml Syringe) 1 mg IVPUSH Q4H PRN; Protocol PRN Reason: Pain, Severe (Pain Scale 7-10) Last Admin: 10/18/25 09:36 Dose: 1 mg Documented By: ESTEPHANIA Lactated Ringer's (Lr) 1,000 mls @ 50 mls/hr IVCONT .Q20H [facility] Last Admin: 10/20/25 03:39 Dose: 50 mls/hr Documented By: CASTILDeandre Magnesium Hydroxide (Milk Of Magnesia 30 Ml Oral.Susp) 30 ml PO DAILY PRN PRN Reason: Constipation Melatonin (Melatonin 3 Mg Tablet) 6 mg PO BEDTIME PRN PRN Reason: Insomnia Metoprolol Tartrate (Metoprolol Tartrate 25 Mg Tablet) 25 mg PO BID [facility]; Protocol Last Admin: 10/20/25 08:28 Dose: 25 mg Documented By: YUNG Naloxone HCl (Naloxone Hcl 0.4 Mg/Ml Vial) 0.04 mg IVPUSH Q5M PRN PRN Reason: Excessive sedation or RR < 8 Ondansetron HCl (Ondansetron Hcl 4 Mg/2 Ml Vial) 4 mg IVPUSH Q8H PRN PRN Reason: Nausea and Vomiting Oxycodone HCl (Oxycodone Hcl Immed Release 5 Mg Tablet) 10 mg PO Q4H PRN PRN Reason: Pain, Moderate(Pain Scale 4-6) Last Admin: 10/17/25 22:57 Dose: 10 mg Documented By: BRYCE Paroxetine HCl (Paroxetine Hcl 30 Mg Tablet) 30 mg PO DAILY [facility] Last Admin: 10/20/25 08:28 Dose: 30 mg Documented By: YUNG Polyethylene Glycol (Polyethylene Glycol 3350 17 Gm Powd.Pack) 17 gm PO DAILY [facility] Last Admin: 10/20/25 08:28 Dose: 17 gm Documented By: YUNG Pravastatin Sodium (Pravastatin Sodium 40 Mg Tablet) 40 mg PO BEDTIME [facility] Last Admin: 10/19/25 21:21 Dose: 40 mg Documented By: DAGO Quetiapine Fumarate (Quetiapine Fumarate 25 Mg Tablet) 25 mg PO BEDTIME [facility] Last Admin: 10/19/25 21:22 Dose: 25 mg Documented By: DAGO Senna/Docusate Sodium (Sennosides/Docusate Sodium Tablet) 2 tab PO DAILY [facility] Last Admin: 10/20/25 08:28 Dose: 2 tab Documented By: YUNG Sodium Chloride (0.9 % Sodium Chloride Flush 3 Ml Syringe) 3 ml IVFLUSH QSHIFT [facility] Last Admin: 10/20/25 08:27 Dose: 3 ml Documented By: YUNG Tamsulosin HCl (Tamsulosin Hcl 0.4 Mg Capsule) 0.4 mg PO BEDTIME [facility] Last Admin: 10/19/25 21:22 Dose: 0.4 mg Documented By: HO.CASTILM Labs 10/19/25 09:21 10/19/25 09:21 Assessment and Plan (1) Coronary artery disease: Status: Acute Plan 85M PMH CAD, CABG, BPH, presented with mechanical fall complicated by left hip fracture Mechanical fall complicated by left femoral neck fracture Postop day 2 6 weeks Lovenox, follow up Orthopedics, acute rehab Acute hypoxic respiratory failure and low-grade fever Empiric ceftriaxone, check chest x-ray, cultures, lactic acid Wean O2 CAD Aspirin, statin BPH Flomax DVT prophylaxis Lovenox Full code reason for continued hospitalization: Fevers, hypoxia Quality Stroke Does the patient have a stroke diagnosis?: No VTE Prior VTE?: No VTE Risk Level:: Medical - moderate - high VTE Device Contraindication: Treatment Not Indicated VTE Drug Contraindication: N/A - Med Ordered
--- NOTE | 2025-10-20 11:46 | PC.NURSE ---
MD Leal made aware pt noon temp 100.8, pt received Tylenol earlier for pain, unable to administer at this time for fever. Per MD stuart DC, CXR and labs ordered.
--- NOTE | 2025-10-20 12:16 | MHC.CM.PN ---
Addendum entered by Leni Ruiz 10/20/25 12:26: IMM 10/20/25 Original Note: Patient planned for discharge to [facility] today. The discharge has been cancelled because the patient has developed a Temp. [facility] and [facility] have been notified that the discharge is cancelled today.
[2025-10-20 12:46] LABS: Hematocrit 34.9 % (42.0-52.0); Hemoglobin 11.4 g/dl (14.0-18.0); Mean Corpuscular HGB Conc 32.7 g/dl (31.0-36.0); Mean Corpuscular Hemoglobin 29.8 pg (27.0-33.0); Mean Corpuscular Volume 91.1 fL (80.0-98.0); NRBC Abs Auto 0.000 X10*3/uL (0.0-0.012); NRBC Pct Auto 0.0 /100WBC (0.0-0.2); Platelet Count 144 X10*3/uL (160-400); Red Blood Count 3.83 X10*6/uL (4.60-5.80); White Blood Count 9.4 X10*3/uL (4.8-10.8)
[2025-10-20 13:00] LABS: Resp Syncy Virus RNA Qual PCR NEGATIVE (Negative); SARS COV2 PCR INHOUSE NEGATIVE (Negative)
[2025-10-20 13:19] LABS: Alanine Aminotransferase 24 U/L (0-40); Albumin Level 3.0 g/dL (3.5-5.0); Alkaline Phosphatase 95 U/L (39-117); Anion Gap 9 (12-20); Aspartate Amino Transferase 52 U/L (5-37); Blood Urea Nitrogen 20 mg/dL (9-16); Calcium 8.4 mg/dL (8.4-10.2); Carbon Dioxide 29 mmol/L (22-29); Chloride 107 mmol/L (96-108); Creatinine Clr Calc Pharmacy 83.1; Estimated Glomerular Filt Rate > 60; Magnesium 2.1 mg/dL (1.6-2.6); Potassium 3.8 mmol/L (3.3-5.1); Sodium 141 mmol/L (135-145); Total Protein 5.3 g/dL (6.5-8.0)
[2025-10-20 14:50] LABS: Appearance Urine Clear; Glucose Urine UA Negative (Negative); PH 5.5 (5.0-9.0); Specific Gravity - Urine 1.025 (1.005-1.025); UMIC TRIGGER UACC YES
[2025-10-20] MEDS: Artificial Tears 15 ML DROPS 1 DROP EYE-BOTH (20:41)
[2025-10-21] VITALS (7 sets, daily range): BP systolic 123–144; BP diastolic 58–78; PULSE 80–99; RESP 16–18; TEMP 36.3–37.3; O2SAT 92–95
[2025-10-21] MEDS: Milk of Magnesia 30 ML ORAL.SUSP PO (03:19)
--- NOTE | 2025-10-21 06:09 | PC.NURSE ---
Addendum entered by Mable Booker RN 10/21/25 06:25: Pharmacy called for fleets enema as it is not in stock in [place]. Transferred me to another line within pharmacy, in which nobody answered. Patient is asleep, appears comfortable. Original Note: pt states no BM for 5 days. + flatus. Pt attempted to disimpact himself in the bathroom. Has received scheduled and PRN bowel regimen. He states he feels a large hard ball of stool pressing on rectum. BROOK[place]N Lawrence contacted and fleet enema ordered. Not available on this unit or med/tele. Will call pharmacy to deliver when open.
[2025-10-21] MEDS: 0.9 % Sodium Chloride Flush 3 ML SYRINGE IVFLUSH ×2 (08:28→20:02)
--- NOTE | 2025-10-21 09:18 | P.PNIM_ITS ---
Subjective Subjective Date of Service: 10/21/25 Interval History: severe constipation, unsuccessful self disimpaction Physical Exam 2 Exam: Exam: General: AO X 3, ill appearing Resp: diminsihed bilateral, accessory muscles used CVS: S1,S2,RRR GI: soft, non tender, non distended Neuro: motor grossly intact, alert Psych: appropriate affect, appropriate insight Vital Signs: Vital Signs: Last Vital Signs Temp 99.1 F 10/21/25 07:45 Pulse 90 10/21/25 07:45 Resp 16 10/21/25 07:45 BP 144/78 H 10/21/25 07:45 Pulse Ox 95 10/21/25 07:45 O2 Del Method Nasal Cannula 10/21/25 07:45 O2 Flow Rate 2 10/21/25 07:45 BMI result Body Mass Index 34.6 Objective Data Active Medications Acetaminophen (Acetaminophen 325 Mg Tablet) 650 mg PO Q6H PRN PRN Reason: Pain, Mild 1-3,fever,headache Last Admin: 10/20/25 10:26 Dose: 650 mg Documented By: YUNG Artificial Tears (Artificial Tears 15 Ml Drops) 1 drop EYE-BOTH QID [facility] Last Admin: 10/21/25 08:29 Dose: Not Given Documented By: YUNG Non-Admin Reason: Patient Refused Calcium Carbonate (Calcium Carbonate 750 Mg Tab.Chew) 750 mg PO Q4H PRN PRN Reason: Heartburn Enoxaparin Sodium (Enoxaparin Sodium 40 Mg/0.4 Ml Syringe) 40 mg SUBCUT Q24H [facility] Last Admin: 10/20/25 16:40 Dose: 40 mg Documented By: YUNG Hydromorphone HCl (Hydromorphone Hcl 1 Mg/Ml Syringe) 1 mg IVPUSH Q4H PRN; Protocol PRN Reason: Pain, Severe (Pain Scale 7-10) Last Admin: 10/18/25 09:36 Dose: 1 mg Documented By: ESTEPHANIA Ceftriaxone Sodium 1 gm/ (Sodium Chloride) 50 mls @ 100 mls/hr IV Q24H [facility] Last Infusion: 10/20/25 13:14 Dose: Infused Documented By: YUNG Magnesium Hydroxide (Milk Of Magnesia 30 Ml Oral.Susp) 30 ml PO DAILY PRN PRN Reason: Constipation Last Admin: 10/21/25 03:19 Dose: 30 ml Documented By: EMILY Melatonin (Melatonin 3 Mg Tablet) 6 mg PO BEDTIME PRN PRN Reason: Insomnia Metoprolol Tartrate (Metoprolol Tartrate 25 Mg Tablet) 25 mg PO BID [facility]; Protocol Last Admin: 10/21/25 08:26 Dose: 25 mg Documented By: YUNG Naloxone HCl (Naloxone Hcl 0.4 Mg/Ml Vial) 0.04 mg IVPUSH Q5M PRN PRN Reason: Excessive sedation or RR < 8 Ondansetron HCl (Ondansetron Hcl 4 Mg/2 Ml Vial) 4 mg IVPUSH Q8H PRN PRN Reason: Nausea and Vomiting Oxycodone HCl (Oxycodone Hcl Immed Release 5 Mg Tablet) 10 mg PO Q4H PRN PRN Reason: Pain, Moderate(Pain Scale 4-6) Last Admin: 10/17/25 22:57 Dose: 10 mg Documented By: BRYCE Paroxetine HCl (Paroxetine Hcl 30 Mg Tablet) 30 mg PO DAILY [facility] Last Admin: 10/21/25 08:26 Dose: 30 mg Documented By: YUNG Polyethylene Glycol (Polyethylene Glycol 3350 17 Gm Powd.Pack) 17 gm PO DAILY [facility] Last Admin: 10/21/25 08:26 Dose: 17 gm Documented By: YUNG Pravastatin Sodium (Pravastatin Sodium 40 Mg Tablet) 40 mg PO BEDTIME [facility] Last Admin: 10/20/25 20:42 Dose: 40 mg Documented By: ÁNGELA Quetiapine Fumarate (Quetiapine Fumarate 25 Mg Tablet) 25 mg PO BEDTIME [facility] Last Admin: 10/20/25 20:42 Dose: 25 mg Documented By: ÁNGELA Senna/Docusate Sodium (Sennosides/Docusate Sodium Tablet) 2 tab PO DAILY [facility] Last Admin: 10/21/25 08:26 Dose: 2 tab Documented By: YUNG Sodium Chloride (0.9 % Sodium Chloride Flush 3 Ml Syringe) 3 ml IVFLUSH QSHIFT [facility] Last Admin: 10/21/25 08:28 Dose: 3 ml Documented By: YUNG Tamsulosin HCl (Tamsulosin Hcl 0.4 Mg Capsule) 0.4 mg PO BEDTIME [facility] Last Admin: 10/20/25 20:41 Dose: 0.4 mg Documented By: ÁNGELA Labs 10/20/25 12:37 10/20/25 12:37 Labs: Laboratory Results - last 24 hr 10/20/25 10/20/25 10/20/25 12:00 12:36 12:37 MCV 91.1 MCH 29.8 MCHC 32.7 RDW 13.0 Plt Count 144 L MPV 9.9 Absolute Nucleated RBC 0.000 Nucleated RBC % (auto) 0.0 Anion Gap 9 L Estim Creat Clear Calc 83.1 Estimated GFR > 60 Random Glucose 147 H Lactic Acid 1.3 Calcium 8.4 Magnesium 2.1 Total Bilirubin 1.5 H Direct Bilirubin 0.5 AST 52 H ALT 24 Alkaline Phosphatase 95 Total Protein 5.3 L Albumin 3.0 L Urine Color Urine Appearance Urine pH Ur Specific [place] Urine Protein Urine Glucose (UA) Urine Ketones Urine Blood Urine Nitrite Ur Leukocyte Esterase Urine RBC Urine WBC Ur Squamous Epith Cells Urine Bacteria Hyaline Casts Influenza Type A (PCR) NEGATIVE Influenza Type B (PCR) NEGATIVE RSV RNA Qual (PCR) NEGATIVE SARS-CoV-2 RNA (RT-PCR) NEGATIVE 10/20/25 14:30 MCV MCH MCHC RDW Plt Count MPV Absolute Nucleated RBC Nucleated RBC % (auto) Anion Gap Estim Creat Clear Calc Estimated GFR Random Glucose Lactic Acid Calcium Magnesium Total Bilirubin Direct Bilirubin AST ALT Alkaline Phosphatase Total Protein Albumin Urine Color Dark Yellow Urine Appearance Clear Urine pH 5.5 Ur Specific [place] 1.025 Urine Protein Trace Urine Glucose (UA) Negative Urine Ketones Negative Urine Blood Negative Urine Nitrite Negative Ur Leukocyte Esterase Trace H Urine RBC 0-2 Urine WBC 0-5 Ur Squamous Epith Cells 0-2 Urine Bacteria None Seen Hyaline Casts 0-2 Influenza Type A (PCR) Influenza Type B (PCR) RSV RNA Qual (PCR) SARS-CoV-2 RNA (RT-PCR) Assessment and Plan (1) Coronary artery disease: Status: Acute Plan 85M PMH CAD, CABG, BPH, presented with mechanical fall complicated by left hip fracture Mechanical fall complicated by left femoral neck fracture Postop day 3 6 weeks Lovenox, follow up Orthopedics, acute rehab Acute hypoxic respiratory failure and low-grade fever Empiric ceftriaxone, chest x-ray most consitent with postop atelectasis - incentive spirometry encouraged flu negative follow up cultures Wean O2 constipation enema CAD Aspirin, statin BPH Flomax DVT prophylaxis Lovenox Full code reason for continued hospitalization: Fevers, hypoxia Quality Stroke Does the patient have a stroke diagnosis?: No VTE Prior VTE?: No VTE Risk Level:: Medical - moderate - high VTE Device Contraindication: Treatment Not Indicated VTE Drug Contraindication: N/A - Med Ordered
--- NOTE | 2025-10-21 10:25 | MHC.CM.PN ---
Per rounds, pt. is not ready to DC today, anciticipate he will go to [facility] over the weekend.
--- NOTE | 2025-10-21 13:04 | MHC.CM.PN ---
EMR REVIEWED AND PER MD ROUNDS, PT IS NOT YET MEDICALLY CLEARED FOR DC TO REHAB.(WEANING OFF 02, MONITORING VS) P.T. REC REHAB. [facility]PDATED VIA [facility]. CM WILL CONTINUE TO FOLLOW FOR ANY CHANGE TO DC PLAN/NEEDS.
[2025-10-21] MEDS: Artificial Tears 15 ML DROPS 1 DROP EYE-BOTH (20:02)
[2025-10-22 03:25] VITALS: BP 142/78; PULSE 85; RESP 18; TEMP 37.5; O2SAT 92
[2025-10-22 06:25] LABS: Hematocrit 36.0 % (42.0-52.0); Hemoglobin 11.9 g/dl (14.0-18.0); Mean Corpuscular HGB Conc 33.1 g/dl (31.0-36.0); Mean Corpuscular Hemoglobin 29.7 pg (27.0-33.0); Mean Corpuscular Volume 89.8 fL (80.0-98.0); NRBC Abs Auto 0.000 X10*3/uL (0.0-0.012); NRBC Pct Auto 0.0 /100WBC (0.0-0.2); Platelet Count 176 X10*3/uL (160-400); Red Blood Count 4.01 X10*6/uL (4.60-5.80); White Blood Count 8.4 X10*3/uL (4.8-10.8)
[2025-10-22 06:38] LABS: Anion Gap 13 (12-20); Blood Urea Nitrogen 12 mg/dL (9-16); Calcium 8.5 mg/dL (8.4-10.2); Carbon Dioxide 29 mmol/L (22-29); Chloride 105 mmol/L (96-108); Creatinine Clr Calc Pharmacy 103.3; Estimated Glomerular Filt Rate > 60; Magnesium 2.0 mg/dL (1.6-2.6); Potassium 4.0 mmol/L (3.3-5.1); Sodium 143 mmol/L (135-145)
[2025-10-22 07:59] VITALS: BP 118/68; PULSE 90; RESP 18; TEMP 37.1; O2SAT 90
[2025-10-22] MEDS: Artificial Tears 15 ML DROPS 1 DROP EYE-BOTH ×2 (09:12→17:25)
[2025-10-22] MEDS: 0.9 % Sodium Chloride Flush 3 ML SYRINGE IVFLUSH ×3 (09:13→19:32)
--- NOTE | 2025-10-22 09:19 | MHC.CM.PN ---
pt dcd to [facility] today
--- NOTE | 2025-10-22 09:28 | MHC.CM.PN ---
son left message re dc to [facility] angie diana [phone]
--- NOTE | 2025-10-22 10:14 | P.PNIM_ITS ---
Subjective Subjective Date of Service: 10/22/25 Interval History: feeling better Physical Exam 2 Exam: Exam: General: AO X 3, improved Resp: diminsihed bilateral, accessory muscles used CVS: S1,S2,RRR GI: soft, non tender, non distended Neuro: motor grossly intact, alert Psych: appropriate affect, appropriate insight Vital Signs: Vital Signs: Last Vital Signs Temp 98.7 F 10/22/25 07:59 Pulse 90 10/22/25 07:59 Resp 18 10/22/25 07:59 BP 118/68 10/22/25 07:59 Pulse Ox 90 L 10/22/25 07:59 O2 Del Method Room Air 10/22/25 07:59 O2 Flow Rate 2 10/21/25 11:00 BMI result Body Mass Index 34.6 Objective Data Active Medications Acetaminophen (Acetaminophen 325 Mg Tablet) 650 mg PO Q6H PRN PRN Reason: Pain, Mild 1-3,fever,headache Last Admin: 10/20/25 10:26 Dose: 650 mg Documented By: YUNG Artificial Tears (Artificial Tears 15 Ml Drops) 1 drop EYE-BOTH QID COUNTS INCLUDE 234 BEDS AT THE [facility] Last Admin: 10/22/25 09:12 Dose: 1 drop Documented By: KISHAN Calcium Carbonate (Calcium Carbonate 750 Mg Tab.Chew) 750 mg PO Q4H PRN PRN Reason: Heartburn Enoxaparin Sodium (Enoxaparin Sodium 40 Mg/0.4 Ml Syringe) 40 mg SUBCUT Q24H COUNTS INCLUDE 234 BEDS AT THE [facility] Last Admin: 10/21/25 16:26 Dose: 40 mg Documented By: YUNG Hydromorphone HCl (Hydromorphone Hcl 1 Mg/Ml Syringe) 1 mg IVPUSH Q4H PRN; Protocol PRN Reason: Pain, Severe (Pain Scale 7-10) Last Admin: 10/18/25 09:36 Dose: 1 mg Documented By: ESTEPHANIA Ceftriaxone Sodium 1 gm/ (Sodium Chloride) 50 mls @ 100 mls/hr IV Q24H COUNTS INCLUDE 234 BEDS AT THE [facility] Last Infusion: 10/21/25 13:24 Dose: Infused Documented By: YUNG Magnesium Hydroxide (Milk Of Magnesia 30 Ml Oral.Susp) 30 ml PO DAILY PRN PRN Reason: Constipation Last Admin: 10/21/25 03:19 Dose: 30 ml Documented By: HO.MENM Melatonin (Melatonin 3 Mg Tablet) 6 mg PO BEDTIME PRN PRN Reason: Insomnia Metoprolol Tartrate (Metoprolol Tartrate 25 Mg Tablet) 25 mg PO BID COUNTS INCLUDE 234 BEDS AT THE [facility]; Protocol Last Admin: 10/22/25 09:12 Dose: 25 mg Documented By: KISHAN Naloxone HCl (Naloxone Hcl 0.4 Mg/Ml Vial) 0.04 mg IVPUSH Q5M PRN PRN Reason: Excessive sedation or RR < 8 Ondansetron HCl (Ondansetron Hcl 4 Mg/2 Ml Vial) 4 mg IVPUSH Q8H PRN PRN Reason: Nausea and Vomiting Oxycodone HCl (Oxycodone Hcl Immed Release 5 Mg Tablet) 10 mg PO Q4H PRN PRN Reason: Pain, Moderate(Pain Scale 4-6) Last Admin: 10/17/25 22:57 Dose: 10 mg Documented By: BRYCE Paroxetine HCl (Paroxetine Hcl 30 Mg Tablet) 30 mg PO DAILY COUNTS INCLUDE 234 BEDS AT THE [facility] Last Admin: 10/22/25 09:13 Dose: 30 mg Documented By: KISHAN Polyethylene Glycol (Polyethylene Glycol 3350 17 Gm Powd.Pack) 17 gm PO DAILY COUNTS INCLUDE 234 BEDS AT THE [facility] Last Admin: 10/22/25 09:13 Dose: 17 gm Documented By: KISHAN Pravastatin Sodium (Pravastatin Sodium 40 Mg Tablet) 40 mg PO BEDTIME COUNTS INCLUDE 234 BEDS AT THE [facility] Last Admin: 10/21/25 20:02 Dose: 40 mg Documented By: BARBY Quetiapine Fumarate (Quetiapine Fumarate 25 Mg Tablet) 25 mg PO BEDTIME COUNTS INCLUDE 234 BEDS AT THE [facility] Last Admin: 10/21/25 20:02 Dose: 25 mg Documented By: BARBY Senna/Docusate Sodium (Sennosides/Docusate Sodium Tablet) 2 tab PO DAILY COUNTS INCLUDE 234 BEDS AT THE [facility] Last Admin: 10/22/25 09:12 Dose: 2 tab Documented By: KISHAN Sodium Chloride (0.9 % Sodium Chloride Flush 3 Ml Syringe) [facility] Last Admin: 10/22/25 09:13 Dose: 3 ml Documented By: KISHAN Tamsulosin HCl (Tamsulosin Hcl 0.4 Mg Capsule) 0.4 mg PO BEDTIME COUNTS INCLUDE 234 BEDS AT THE [facility] Last Admin: 10/21/25 20:02 Dose: 0.4 mg Documented By: BARBY Labs 10/22/25 05:35 10/22/25 05:35 Labs: Laboratory Results - last 24 hr 10/22/25 05:35 MCV 89.8 MCH 29.7 MCHC 33.1 RDW 12.6 Plt Count 176 MPV 9.9 Absolute Nucleated RBC 0.000 Nucleated RBC % (auto) 0.0 Anion Gap 13 Estim Creat Clear Calc 103.3 Estimated GFR > 60 Random Glucose 127 H Calcium 8.5 Magnesium 2.0 Microbiology Microbiology Results: Microbiology 10/20/25 12:37 Blood Culture - Preliminary Blood - Venous No growth after 24 hours. 10/20/25 12:37 Blood Culture - Preliminary Blood - Venous No growth after 24 hours. Assessment and Plan (1) Coronary artery disease: Status: Acute Plan 85M PMH CAD, CABG, BPH, presented with mechanical fall complicated by left hip fracture Mechanical fall complicated by left femoral neck fracture Postop day 4 6 weeks Lovenox, follow up Orthopedics, acute rehab Acute hypoxic respiratory failure and low-grade fever Empiric ceftriaxone, chest x-ray most consitent with postop atelectasis - incentive spirometry encouraged flu negative follow up cultures Wean O2 constipation resolved CAD Aspirin, statin BPH Flomax DVT prophylaxis Lovenox Full code reason for continued hospitalization: dispo planning Quality Stroke Does the patient have a stroke diagnosis?: No VTE Prior VTE?: No VTE Risk Level:: Medical - moderate - high VTE Device Contraindication: Treatment Not Indicated VTE Drug Contraindication: N/A - Med Ordered
--- NOTE | 2025-10-22 10:25 | MHC.CM.PN ---
[facility] will not have a bed till sun amb rebooked for sun at 1 message left for family re change
[2025-10-22 11:41] VITALS: BP 107/57; PULSE 86; RESP 18; TEMP 36.8; O2SAT 93
[2025-10-22 15:06] VITALS: BP 122/72; PULSE 87; RESP 18; TEMP 36.3; O2SAT 94
[2025-10-22 20:00] VITALS: BP 127/64; PULSE 87; RESP 17; TEMP 36.8; O2SAT 93
[2025-10-23] VITALS: BP 120/60; PULSE 86; RESP 17; TEMP 36.6; O2SAT 93
[2025-10-23 04:00] VITALS: BP 148/77; PULSE 80; RESP 18; TEMP 36.3; O2SAT 92
[2025-10-23 07:42] VITALS: BP 139/81; PULSE 82; RESP 18; TEMP 36.3; O2SAT 92
[2025-10-23] MEDS: 0.9 % Sodium Chloride Flush 3 ML SYRINGE IVFLUSH (09:08)
[2025-10-23] MEDS: Artificial Tears 15 ML DROPS 1 DROP EYE-BOTH (09:09)
[2025-10-23 11:56] VITALS: BP 127/68; PULSE 85; RESP 18; TEMP 36.2; O2SAT 92
--- NOTE | 2025-11-30 11:01 | P.CDIM_ITS ---
PROVIDER RESPONSE TEXT: To clarify, the appropriate diagnosis supported by the clinical indicators: Other (explain): unspecified QUERY TEXT: PHYSICIAN'S DOCUMENTATION REQUEST Date of Query: 11/30/2025 07:15 AM EST Patient Name: Eric Collins Admit Date: 10/17/2025 Dear Collin Leal MD, A review of the medical record indicates additional documentation may be needed. Please review below and update the documentation accordingly. Clinical Indicators: patient admitted for mechanical fall with left hip fracture lung assessment on H&P 10/17/25: denies shortness of breath, respiratory rate 16, SAT 97% room air, clear to auscultation bilaterally no rales rhonchi or wheezes CXR on admission 10/17/25: No acute disease, low lung volumes On 10/18/25 underwent Left hip cemented bipolar hemiarthroplasty The following diagnoses or signs and symptoms were noted in the patient record: Per Orthopedic progress note 10/20/25, normal respiratory effort and able to speak in complete sentences Per Hospitalist progress note 10/20/25: feels poorly, short of breath, fever Respiratory assessment: diminished bilateral, accessory muscles used oxygen at 1L NC Acute hypoxic respiratory failure and low-grade fever Empiric Ceftriaxone, check chest x-ray, cultures, lactic acid Wean O2 CXR: most consistent with postop atelectasis - incentive spirometry encouraged Based on the above, could you clarify the appropriate diagnosis, if significant, that supports the above abnormalities and additional evaluation, monitoring, and/or treatment rendered: Acute hypoxic respiratory failure and atelectasis are actual post op complications Acute hypoxic respiratory failure and atelectasis are conditions that just developed in the post op time period Other (explain) Clinically unable to determine (explain) Thank you, Page Siegel RN Use of terms such as suspected, likely, concern for, or probable (associated with a specific diagnosis that is being evaluated, monitored, or treated as if it exists) are acceptable and can be coded in the inpatient setting, when documented at the time of discharge. Please use your independent medical judgment in providing your response. THIS QUERY IS PART OF THE PERMANENT MEDICAL RECORD
== END 2025-10-23 13:28 | DRG 521 ==
LOC: HO.ED 17:24 → HO.EDOVER 17:32 → HO.S3 10-18 11:18
PROVIDERS: Orthopaedic Surgery; Physician Assistant; Admitting Provider Hospitalist; Emergency Provider Emergency Medicine; Visit Provider Internal Medicine
PROC: 0SRS0J9 Replacement of Left Hip Joint, Femoral Surface with Synthetic Substitute, Cemented, Open Approach (ICD-10-PCS; principal; 2025-10-18 15:30)
DX: S72.002A Fracture of unspecified part of neck of left femur, initial encounter for closed fracture (principal); J96.01 Acute respiratory failure with hypoxia; J98.11 Atelectasis; R50.9 Fever, unspecified; E78.5 Hyperlipidemia, unspecified; N40.0 Benign prostatic hyperplasia without lower urinary tract symptoms; I25.10 Atherosclerotic heart disease of native coronary artery without angina pectoris; W01.198A Fall on same level from slipping, tripping and stumbling with subsequent striking against other object, initial encounter; Y93.H9 Activity, other involving exterior property and land maintenance, building and construction; Z20.822 Contact with and (suspected) exposure to COVID-19; Z95.5 Presence of coronary angioplasty implant and graft; Z79.82 Long term (current) use of aspirin; Z79.899 Other long term (current) drug therapy
CPT/HCPCS: 36415; 70450; 71045; 72125; 72170; 73502; 80048; 80053; 80076; 81001; 81003; 83605; 83690; 83735; 84484; 85014; 85018; 85025; 85027; 86850; 86900; 86901; 87040; 87637; 88305; 88311; 93005; 93306; 97110; 97162; 97166; 97530; 99285; C1776; J0131; J0690; J0696; J1100; J1171; J1650; J1885; J2270; J2405; J2704; J3010; J3374; J7120; Q9957

== ENCOUNTER → 2025-10-17 15:40 | Outpatient (BNV) | payer MEDICARE, MEDICAID, SELFPAY | PROVIDERS: Emergency Provider Emergency Medicine; Visit Provider Radiology Diagnostic Radiology | DX: S09.90XA Unspecified injury of head, initial encounter (principal); J98.4 Other disorders of lung; M16.0 Bilateral primary osteoarthritis of hip; Z04.3 Encounter for examination and observation following other accident | CPT/HCPCS: 70450; 71045; 72125; 73502 ==

== ENCOUNTER 2025-10-17 17:27 | Outpatient (BNV) | payer MEDICARE, MEDICAID, SELFPAY | END 2025-10-18 17:55 | PROVIDERS: Admitting Provider Hospitalist; Emergency Provider Emergency Medicine; Visit Provider Nuclear Medicine | DX: Z96.642 Presence of left artificial hip joint (principal) | CPT/HCPCS: 72170 ==

== ENCOUNTER 2025-10-17 17:27 | Outpatient (BNV) | payer MEDICARE, MEDICAID, SELFPAY | END 2025-10-18 07:00 | PROVIDERS: Admitting Provider Hospitalist; Emergency Provider Emergency Medicine; Visit Provider Internal Medicine | DX: I42.2 Other hypertrophic cardiomyopathy (principal); I51.7 Cardiomegaly | CPT/HCPCS: 93306 ==

== ENCOUNTER 2025-10-17 17:27 | Outpatient (BNV) | payer MEDICARE, MEDICAID, SELFPAY | END 2025-10-20 14:34 | PROVIDERS: Admitting Provider Hospitalist; Emergency Provider Emergency Medicine; Visit Provider Radiology Diagnostic Radiology | DX: J98.4 Other disorders of lung (principal) | CPT/HCPCS: 71045 ==

== ENCOUNTER → 2025-10-17 17:27 | Outpatient (BNV) | payer MEDICARE, MEDICAID, SELFPAY | PROVIDERS: Admitting Provider Hospitalist; Emergency Provider Emergency Medicine; Visit Provider Internal Medicine | DX: I25.10 Atherosclerotic heart disease of native coronary artery without angina pectoris (principal); Z01.810 Encounter for preprocedural cardiovascular examination | CPT/HCPCS: 93010; 99223 ==

== ENCOUNTER → 2025-10-17 17:27 | Outpatient (BNV) | payer MEDICARE, MEDICAID, SELFPAY | PROVIDERS: Admitting Provider Hospitalist; Emergency Provider Emergency Medicine; Visit Provider Hospitalist | DX: I25.10 Atherosclerotic heart disease of native coronary artery without angina pectoris (principal) | CPT/HCPCS: 99223; 99232; 99233 ==

== ENCOUNTER → 2025-10-17 17:27 | Outpatient (BNV) | payer MEDICARE, MEDICAID, SELFPAY | PROVIDERS: Admitting Provider Hospitalist; Emergency Provider Emergency Medicine; Visit Provider Physician Assistant | DX: S72.002A Fracture of unspecified part of neck of left femur, initial encounter for closed fracture (principal); Z96.642 Presence of left artificial hip joint | CPT/HCPCS: 27236; 99024; 99223 ==

== ENCOUNTER 2025-11-04 08:43 | Outpatient (AMB) | payer MEDICARE, MEDICAID, SELFPAY ==
--- NOTE | 2025-11-04 08:52 | MHC.OFFVIS ---
Intake Visit Reasons: PO-Lt hip hemiarthroplasty ; DOS:10/18/25 Intake Note: Eric is an 85 year old male who presents today post operatively after undergoing a left hip robert arthroplasty, performed by Dr. Sexton on 10/18/25. Patient reports that he is doing well, states not any pain at the moment. [facility] Allergies No Known Allergies Allergy (Verified 11/04/25 09:18) Medication List - Last Reconciled 11/04/25 by Emma Lemons PA-C aspirin 81 mg PO DAILY carboxymethylcellulose sodium 0.5% 1 drp ophthalmic (eye) QID enoxaparin 40 mg (0.4 mL) subcut Q24H metoprolol tartrate 25 mg PO BID paroxetine HCl 30 mg PO DAILY polyethylene glycol 3350 17 grams PO DAILY pravastatin 40 mg PO BEDTIME quetiapine 25 mg PO BEDTIME sennosides-docusate sodium 8.6-50 mg (Senna with Docusate Sodium) 2 tab-caps PO DAILY sildenafil 100 mg PO DAILY PRN tadalafil 20 mg PO DAILY PRN tamsulosin 0.4 mg PO BEDTIME HPI HPI PO-Lt hip hemiarthroplasty DR; DOS:10/18/25: Details: 85 yo male presents to the office today s.p Lt hip arthroplasty with Dr. Sexton on 10/18/2025. The patient is in her short-term rehab expecting to go home later today. He is ambulating with a walker and sometimes a cane. He has no significant concerns today and is doing well. [facility] Medical History (Updated 10/31/25 @ 00:00 by Finn Littlejohn) Angioma Depression Anxiety Urinary retention Cataract Coronary artery disease HLD (hyperlipidemia) HTN (hypertension) Surgical History [place] teeth extracted H/O wrist surgery History of appendectomy S/P CABG x 2 Social History Household Members: None Housing: House Do you presently have visiting nurse or other home services: No Patient Tobacco Use Status: Never used Tobacco Advance Directives Date on File: 10/18/25 service: No Review of Systems Const All systems reviewed & are unremarkable except as noted in HPI and below Physical Exam Extrem Other: Left hip incision is clean dry and intact, no surrounding erythema or ecchymosis. He has good range of motion of the hip without pain and can perform hip flexion. Calf is supple and nontender neurovascularly intact. Results Reviewed Results Reviewed: X-rays of the left hip obtained in the office today and reviewed by me show intact orthopedic hardware Assessment & Plan Assessment & Plan (1) Status post hemiarthroplasty of left hip: Code(s): Z96.642 - Presence of left artificial hip joint Category: Surgical Plan: Sunny removed today Steri-Strips applied. The patient will continue working with physical therapy to improve range of motion strength and gait training. They will return in 4 weeks for routine follow up, sooner if needed. Orders: Orders XR hip LT min 2V Today M25.552 - Pain in left hip Coding Level of Care Code Global (95351) Diagnoses Status post hemiarthroplasty of left hip Z96.642
== END 2025-11-04 09:59 | disposition home or self-care (01) ==
LOC: HO.HOS 08:43
PROVIDERS: Visit Provider Physician Assistant
DX: Z96.642 Presence of left artificial hip joint (principal)
CPT/HCPCS: 99024

== ENCOUNTER → 2025-11-04 08:49 | Outpatient (BNV) | payer MEDICARE, MEDICAID, SELFPAY | PROVIDERS: Visit Provider Radiology Diagnostic Radiology | DX: M25.552 Pain in left hip (principal); Z96.642 Presence of left artificial hip joint | CPT/HCPCS: 73502 ==

== ENCOUNTER 2025-11-04 17:41 | Outpatient (REF) | payer MEDICARE, MEDICAID, SELFPAY ==
--- NOTE | ~2025-11-04 | XR_ITS ---
EXAMINATION: XR HIP 2 OR MORE VIEWS LEFT HISTORY: M25.552 - Pain in left hip COMPARISON: Comparison is made with the prior examination dated 10/18/2025. FINDINGS: A single AP view of the pelvis and 2 views of the left hip are submitted. The patient is again noted to be status post left total hip arthroplasty. There is the suggestion of rotation of the acetabular cup when compared to the prior study. Evaluation is somewhat limited due to differences in patient positioning. There is no fracture or dislocation. The soft tissues are unremarkable. XR/XR hip LT min 2V IMPRESSION: Status post left total hip arthroplasty. Possible rotation of the acetabular cup since the prior study. Electronically signed by: Sage Ching MD 11/04/2025 09:07 AM [facility]
--- OUTSIDE RECORDS SUMMARY | 2025-11-06 17:44 | XMS_ITS | Encounter Summary ---
Author Organization [facility] Address [address] [place] [address] Care Team Providers Care Hematology Technologist Name Role Phone Madison Grey MD Primary Care Provider Encounter Details Date Type Department Care Team (Late st Contact Info) Description 10/26/2025 Lab Requisition [facility] Main Lab [address] [facility] [place] [address] Tequila Arteaga PA [address] [place] [id number] Encounter for other general examination Social History Tobacco Use Types Packs/Day Years Used Date Smoking Tobacco: Never Smokeless Tobacco: Never Alcohol Use Standard Drinks/Week Comments Not Currently 0 (1 standard drink = 0.6 oz pur e alcohol) Sex and Gender Information Value Date Recorded Sex Assigned at Male 02/06/2025 3:21 PM EDT Legal Sex Male 8:30 PM EST Gender Identity Male 02/06/2025 3:21 PM EDT Sexual Orientation Straight 02/06/2025 3: 21 PM EDT documented as of this encounter Plan of Treatment Not on file documented as of this encounter Procedures Procedure Name Priority Date/Time Associated Diagnosis Comments MAGNESIUM Routine 10/26/2025 6:23 AM EST Encounter for other general examination documented in this encounter Results * Magnesium (10/26/2025 6:23 AM EST) Magnesium 2.0 1.9 - 2.6 mg/dL 10/26/2025 10:[address] [facility] Blood Venous blood specimen / Unknown Venipuncture / Unknown 10/26/2025 6:23 AM EST 10/26/2025 9:32 AM EST us [facility] BLOOD ORDERABLES Final Resu lt [facility] [address] [place] [address], documented in this encounter Visit Diagnoses Diagnosis Encounter for other general examination documented in this encounter Care Teams Hematology Technologist Relationship Specialty Start Date End Date Madison Grey MD [address] [place] [phone] PCP - General Internal Medicine 04/29/25 documented as of this encounter
--- OUTSIDE RECORDS SUMMARY | 2025-11-06 17:47 | XMS_ITS | Encounter Summary ---
Author Organization [facility] Address [address] [place] [address] Care Team Providers Care Seafood Technology Specialist Name Role Phone Madison Grey MD Primary Care Provider Encounter Details Date Type Department Care Team (Late st Contact Info) Description 10/24/2025 Lab Requisition [facility] - Main Lab [address] [facility] [place] [address] Tequila Arteaga PA [address] [place] [phone] Encounter for other general examination Social History [...] Procedure Name Priority Date/Time Associated Diagnosis Comments CBC WITH AUTO DIFFERENTIAL Routine 10/24/2025 6:26 AM EST Encounter for other general examination CBC AND DIFFERENTIAL Routine 10/24/2025 6:26 AM EST Encounter for other general examination MAGNESIUM Routine 10/24/2025 6:26 AM EST Encounter for other general examination COMPREHENSIVE METABOLIC PANEL Routine 10/24/2025 6:26 AM EST Encounter for other general examination documented in this encounter Results * (ABNORMAL) CBC auto differential (10/24/2025 6:26 AM EST) WBC 8.8 4.8 - 10.8 K/mcL LAB HEMETOLOGY METHOD 10/24/2025 2:07 PM [facility] RBC 4.00(L) 4.50 - 5.50 M/mcL LAB HEMETOLOGY METHOD 10/24/2025 2:07 PM [facility] Hemoglobin 12.1(L) 13.5 - 17.5 g/dL LAB HEMETOLOGY METHOD 10/24/2025 2:07 PM [facility] LAB Hematocrit 36.8(L) 42.0 - 54.0 % LAB HEMETOLOGY METHOD 10/24/2025 2:07 PM [facility] MCV 91.1 79.0 - 98.0 FL LAB HEMETOLOGY METHOD 10/24/2025 2:07 PM [facility] LAB MCH 30.0 27.0 - 32.0 pcg LAB HEMETOLOGY METHOD 10/24/2025 2:07 PM [facility] LAB MCHC 32.9 32.0 - 37.0 g/dL LAB HEMETOLOGY METHOD 10/24/2025 2:07 PM [facility] RDW 12.8 11.0 - 15.0 % LAB HEMETOLOGY METHOD 10/24/2025 2:07 PM [facility] LAB Platelets 236 130 - 400 K/mcL LAB HEMETOLOGY METHOD 10/24/2025 2:07 PM [facility] LAB MPV 9.5 7.0 - 11.0 FL LAB HEMETOLOGY METHOD 10/24/2025 2:07 PM [facility] NRBC 0.0 <1.0 % LAB HEMETOLOGY METHOD 10/24/2025 2:07 PM [facility] LAB NRBC Absolute 0.00 <0.10 K/mcL LAB HEMETOLOGY METHOD 10/24/2025 2:07 PM [facility] Neutrophils Relative 64.5 % LAB HEMETOLOGY METHOD 10/24/2025 2:07 PM [facility] Lymphocytes Relative 19.6 % LAB HEMETOLOGY METHOD 10/24/2025 2:07 PM [facility] Monocytes Relative 10.3 % LAB HEMETOLOGY METHOD 10/24/2025 2:07 PM [facility] Eosinophils Relative 3.2 % LAB HEMETOLOGY METHOD 10/24/2025 2:07 PM [facility] Basophils Relative 1.2 % LAB HEMETOLOGY METHOD 10/24/2025 2:07 PM [facility] Immature Granulocytes Relative 1.2 % LAB HEMETOLOGY METHOD 10/24/2025 2:07 PM [facility] Neutrophils Absolute 5.67 1.50 - 7.00 K/mcL LAB HEMETOLOGY METHOD 10/24/2025 2:07 PM [facility] Lymphocytes Absolute 1.73 1.00 - 5.00 K/mcL LAB HEMETOLOGY METHOD 10/24/2025 2:07 PM [facility] Monocytes Absolute 0.91 0.20 - 1.00 K/mcL LAB HEMETOLOGY METHOD 10/24/2025 2:07 PM [facility] Eosinophils Absolute 0.28 0.00 - 0.50 K/mcL LAB HEMETOLOGY METHOD 10/24/2025 2:07 PM [facility] Basophils Absolute 0.11 0.00 - 0.20 K/mcL LAB HEMETOLOGY METHOD 10/24/2025 2:07 PM [facility] Immature Granulocytes Absolute 0.11(H) 0.00 - 0.03 K/mcL LAB HEMETOLOGY METHOD 10/24/2025 2:07 PM EST [facility] Blood Venous blood specimen / Unknown Venipuncture / Unknown 10/24/2025 6:26 AM EST 10/24/2025 12:03 PM EST Tequila BARAHONA LAB BLOOD ORDERABLES Final Resu lt [facility] [address] [place] [address], [place] [phone] * (ABNORMAL) Magnesium (10/24/2025 6:26 AM EST) Magnesium 1.7(L) 1.9 - 2.6 mg/dL 10/24/2025 1:41 PM EST [facility] Blood Venous blood specimen / Unknown Venipuncture / Unknown 10/24/2025 6:26 AM EST 10/24/2025 12:03 PM EST Tequila BARAHONA LAB BLOOD ORDERABLES Final Resu lt [facility] [address] [place] [address], [place] [phone] * (ABNORMAL) Comprehensive metabolic panel (10/24/2025 6:26 AM EST) Sodium 140 133 - 145 mmol/L 10/24/2025 1:41 PM EST [facility] Potassium 4.2 3.5 - 5.5 mmol/L 10/24/2025 1:41 PM EST [facility] Chloride 102 96 - 110 mmol/L 10/24/2025 1:41 PM EST [facility] CO2 28 21 - 32 mmol/L 10/24/2025 1:41 PM EST [facility] Anion Gap 10 3 - 11 10/24/2025 1:41 PM [facility] Glucose 87 70 - 100 mg/dL 10/24/2025 1:41 PM [facility] BUN 13 5 - 25 mg/dL 10/24/2025 1:41 PM [facility] Creatinine 0.66(L) 0.70 - 1.30 mg/dL 10/24/2025 1:41 PM [facility] eGFR 92 >=60 mL/min/1. 73m2 10/24/2025 1:41 PM [facility] Comment:Calculation based on the Chronic Kidney Disease Epidemiology Collaboration (CKD-EPI) equation refit without adjustment for race. BUN/Creatinine Ratio 19.7 10/24/2025 1:41 PM [facility] Calcium 7.8(L) 8.5 - 10.5 mg/dL 10/24/2025 1:41 PM [facility] AST (SGOT) 54(H) 10 - 42 unit/L 10/24/2025 1:41 PM [facility] ALT (SGPT) 56 10 - 60 unit/L 10/24/2025 1:41 PM [facility] Alkaline Phosphatase 143(H) 42 - 121 unit/L 10/24/2025 1:41 PM [facility] Total Protein 5.3(L) 6.0 - 8.0 g/dL 10/24/2025 1:41 PM [facility] Albumin 2.9(L) 3.2 - 5.0 g/dL 10/24/2025 1:41 PM [facility] Total Bilirubin 1.3 0.0 - 1.4 mg/dL 10/24/2025 1:41 PM [facility] Blood Venous blood specimen / Unknown Venipuncture / Unknown 10/24/2025 6:26 AM EST 10/24/2025 12:03 PM EST Tequila BARAHONA LAB BLOOD ORDERABLES Final Resu lt [facility] [address] [place] [address], documented in this encounter Visit Diagnoses Diagnosis Encounter for other general examination documented in this encounter Care Teams Seafood Technology Specialist Relationship Specialty Start Date End Date Madison Grey MD [address] [place] [phone] PCP - General Internal Medicine 04/29/25 documented as of this encounter
--- OUTSIDE RECORDS SUMMARY | 2025-11-06 17:47 | XMS_ITS | Encounter Summary ---
Author Organization [facility] Address [address] [place] [address] Care Team Providers Care Vice President Diversity Name Role Phone Madison Grey MD Primary Care Provider Encounter Details Date Type Department Care Team (Late st Contact Info) Description 10/31/2025 Lab Requisition [facility] - Main Lab [address] [facility] [place] [address] Tequila Arteaga PA [address] [place] [address] Encounter for other general examination Social History [...] Procedure Name Priority Date/Time Associated Diagnosis Comments COMPLETE BLOOD COUNT Routine 10/31/2025 5:52 AM EST Encounter for other general examination MAGNESIUM Routine 10/31/2025 5:52 AM EST Encounter for other general examination documented in this encounter Results * (ABNORMAL) Complete blood count (10/31/2025 5:52 AM EST) [facility] WBC 8.6 4.8 - 10.8 K/mcL LAB HEMETOLOGY METHOD 10/31/2025 1:34 PM [facility] RBC 4.00(L) 4.50 - 5.50 M/mcL LAB HEMETOLOGY METHOD 10/31/2025 1:34 PM [facility] LAB Hemoglobin 11.9(L) 13.5 - 17.5 g/dL LAB HEMETOLOGY METHOD 10/31/2025 1:34 PM [facility] LAB Hematocrit 37.3(L) 42.0 - 54.0 % LAB HEMETOLOGY METHOD 10/31/2025 1:34 PM [facility] LAB MCV 93.3 79.0 - 98.0 FL LAB HEMETOLOGY METHOD 10/31/2025 1:34 PM [facility] LAB MCH 29.8 27.0 - 32.0 pcg LAB HEMETOLOGY METHOD 10/31/2025 1:34 PM [facility] LAB MCHC 31.9(L) 32.0 - 37.0 g/dL LAB HEMETOLOGY METHOD 10/31/2025 1:34 PM [facility] LAB RDW 13.0 11.0 - 15.0 % LAB HEMETOLOGY METHOD 10/31/2025 1:34 PM [facility] LAB Platelets 345 130 - 400 K/mcL LAB HEMETOLOGY METHOD 10/31/2025 1:34 PM [facility] MPV 8.9 7.0 - 11.0 FL LAB HEMETOLOGY METHOD 10/31/2025 1:34 PM [facility] LAB NRBC 0.0 <1.0 % LAB HEMETOLOGY METHOD 10/31/2025 1:34 PM [facility] NRBC Absolute 0.00 <0.10 K/mcL LAB HEMETOLOGY METHOD 10/31/2025 1:34 PM EST [facility] Blood Venous blood specimen / Unknown Venipuncture / Unknown 10/31/2025 5:52 AM EST 10/31/2025 11:42 AM EST Tequila BARAHONA LAB BLOOD ORDERABLES Final Resu lt [facility] [address] [place] [address], [place] [phone] * Magnesium (10/31/2025 5:52 AM EST) Magnesium 2.1 1.9 - 2.6 mg/dL 10/31/2025 12:59 PM EST [facility] Blood Venous blood specimen / Unknown Venipuncture / Unknown 10/31/2025 5:52 AM EST 10/31/2025 11:42 AM EST Tequila BARAHONA LAB BLOOD ORDERABLES Final Resu lt Performing Organization Address City/[facility]/ZIP Co de Phone Number [facility] [address] [place] [address], [place] [phone] documented in this encounter Visit Diagnoses Diagnosis Encounter for other general examination documented in this encounter Care Teams Vice President Diversity Relationship Specialty Start Date End Date Madison Grey MD [address] [place] [phone] PCP - General Internal Medicine 04/29/25 documented as of this encounter
--- OUTSIDE RECORDS SUMMARY | 2025-11-06 17:47 | XMS_ITS | Clinical Summary ---
Author Organization [employer] Address [address] [facility] [address] [place] [address] Care Team Providers Care Under Trimmer Name Role Phone Unavailable Primary Care Provider Unavailabl e Allergies Active Allergy Reactions Criticality Noted Date Comments Bupropion 10/30/2018 Other Reaction(s): Feeling agitated Simvastatin Muscle Pain 05/17/2008 Venlafaxine 07/20/2024 Other Reaction(s): headaches Medications sertraline (Zoloft) 50 MG tablet Take 1 tablet by mouth at bed time. Active pravastatin (Pravachol) 40 MG tablet Take 1 tablet by mouth at bed time. Active metoprolol tartrate (Lopressor) 25 MG tablet Take 1 tablet by mouth every 12 (twelve) hours. 03/14/2016 Active albuterol 108 (90 Base) MCG/ACT inhaler INHALE 1 PUFF BY MOUTH FOUR TIMES A DAY NEEDED FOR WHEEZING FOR 14 DAYS 03/14/2022 Active aspirin 81 MG EC tablet Take 1 tablet by mouth in the morning. 03/14/2016 Active aspirin 81 MG oral suspension Take 81 mg by mouth. 10/05/2011 Active PARoxetine (Paxil) 10 MG tablet Take 10 mg by mouth. 10/26/2019 Active Active Problems Problem Noted Date Diagnosed Date Amaurosis fugax 08/31/2024 Overview (08/31/2024): Dec 08, 2015 Entered By: ARIANA MILLER Comment: HOLTER REPORT CPRS notes 12/08/2015 normal Atrioventricular block, first degree 08/31/2024 Bronchitis, not specified as acute or chronic Cervical disc disease 08/31/2024 Overview (08/31/2024): Aug 10, 2013 Entered By: IVETTE CURRY Comment: X-Ray, C-Spine AUG 13: +DJD & Degen Disc Disease Chronic ischemic heart disease 08/31/2024 Overview (08/31/2024): Dec 27, 2010 Entered By: IVETTE CURRY Comment: CABG AUG 10 at [facility] Entered By: ARIANA MILLER Comment: ECHO 01/26/19 REPORT IN SCAN Class 1 obesity 08/31/2024 Class 2 obesity 08/31/2024 Cough 08/31/2024 Diplopia 08/31/2024 Disorder of bilirubin excretion 08/31/2024 Dry eye syndrome of bilateral lacrimal glands Encounter for fitting and ad justment of spectacles and contact lenses 08/31/2024 Enthesopathy of hip region 08/31/2024 Erectile dysfunction 08/31/2024 Ankle pain 08/31/2024 Hemangioma 08/31/2024 Overview (08/31/2024): Mar 30, 2008 Entered By: ZOHRA PHELPS Comment: Left Lobe Large Liver [facility] CT/Vascular scanMar 30, 2008 Entered By: ZOHRA PHELPS Comment: Scans done Dec and Jan 2008 Hemangioma of intra-abdominal structure 08/31/20 History of colonoscopy 08/31/2024 Overview (08/31/2024): May 16, 2015 Entered By: ARIANA MILLER Comment: 07/16/11 Hyperglycemia 08/31/2024 Essential (primary) hypertension 08/31/2024 Hypertension 08/31/2024 Impaired fasting glucose 08/31/2024 Incontinence 08/31/2024 Ingrowing nail 08/31/2024 Liver disease, unspecified 08/31/2024 Lesion of liver 08/31/2024 Lower urinary tract symptoms due to benign prostatic hyperplasia 08/31/2024 Lumbar radiculopathy 08/31/2024 Major depressive disorder, recurrent, moderate ( CMS/HCC) 08/31/2024 Major depressive disorder, r ecurrent, in remission, unspecified 08/31/2024 Memory impairment 08/31/2024 Migraine variant 08/31/2024 Overview (08/31/2024): Nov 29, 2015 Entered By: KARLIE COELHO Comment: aura without UMANZOR Multiple nodules of lung 08/31/2024 Obstructive sleep apnea of adult 08/31/2024 Onychomycosis of toenail 08/31/2024 Osteoarthritis 08/31/2024 Other abnormalities of gait and mobility 024 Palpitations 08/31/2024 Presence of intraocular lens 08/31/2024 Right foot drop 08/31/2024 Dyspnea, unspecified 08/31/2024 Other forms of dyspnea 08/31/2024 Short of breath on exertion 08/31/2024 Shoulder joint pain 08/31/2024 Overview (08/31/2024): Aug 10, 2013 Entered By: IVETTE CURRY [facility]-H Jt & A-C Jt;Aug 10, 2013 Entered By: IVETTE CURRY Comment: also, Lytic Lesion L Humerus; order Bone Scan via [facility] Tear film insufficiency 08/31/2024 Tear of left rotator cuff 08/31/2024 Overview (08/31/2024): Dec 21, 2018 Entered By: ARIANA MILLER Comment: MRI 08/2017 MOD SUPRASPINATUS TENDINOSIS WITH A 7mm intrasubstance insertion tear.mild glenohumeral OA, report to scan Vitamin D deficiency 08/31/2024 Acidosis, unspecified 02/02/2023 Disease due to severe acute respiratory syndrome coronavirus 2 (SARS-CoV-2) 03/15/2022 Overview (08/31/2024): Problem added by Discern Expert Problem added by Discern Expert Gilbert's syndrome 06/26/2011 Greater trochanteric bursitis 06/26/2011 Major depressive disorder 06/26/2011 Overview (08/31/2024): May 20, 2018 Entered By: HENRIETTA IRENE Comment: reviewedMa2020 Entered By: HENRIETTA IRENE Comment: reviewed Arteriosclerosis of coronary artery 06/25/2011 Degeneration of intervertebral disc of lumbar re gion 05/20/2011 Social History Tobacco Use Types Packs/Day Years Used Date Smoking Tobacco: Never Smokeless Tobacco: Never Tobacco Cessation:Counseling Given: Not Answered Sex and Gender Information Value Date Recorded Sex Assigned at Male 09/30/2022 10:29 AM EDT Legal Sex Male 10:29 AM EDT Gender Identity Male 09/30/2022 10:29 AM EDT Sexual Orientation Straight 09/30/2022 10 :29 AM EDT Last Filed Vital Signs Vital Sign Reading Time Taken Comments Blood Pressure 130/70 02/26/2024 1:06 PM EDT Pulse - - Temperature - - Respiratory Rate - - Oxygen Saturation - - Inhaled Oxygen Concentration - - Weight - - Height - - Body Mass Index - - Plan of Treatment Health Maintenance Due Date Last Done Comments Depression Screening 1941 Lipid Panel 1941 SDOH Screening 1941 Alcohol/Substance Use Screening 1953 Hepatitis A Vaccines (1 of 2 - Risk 2-dose series) 02/09/1960 Hepatitis B Vaccines (1 of 3 - Risk 3-dose series) 2001 RSV Patients and Patients Aged 60 years or older (1 - 1-dose 75+ series) 02/09/2016 Dental Prophylaxis 05/08/2023 11/06/2022 DTaP/Tdap/Td Vaccines (4 - Td or Tdap) 06/17/2023 06/17/2013, 04/12/2011, 04/12/2011 Dental X-Ray: Bitewings 11/07/2023 11/06/2022 Dental Oral Exam 01/30/2024 07/31/2023, 11/06/2022 COVID-19 Vaccine ( season) 2025 10/08/2022, 05/07/2022, 12/15/2021, Additional history exists Influenza Vaccine (#1) 2025 , 09/16/2022, 10/29/2021, Additional history exists Tobacco Screening 08/31/2025 08/31/2024 Dental X-Ray: Full Mouth 01/01/2027 12/31/2023 Pneumococcal Vaccine: 50+ Years Completed 08/24/2020, 11/29/2015, 08/17/2010, Additional history exists Zoster Vaccines Completed 12/19/2020, 08/15/2020 HIB Vaccines Aged Out No longer eligi ble based on patient's age to complete this topic HPV Vaccines Aged Out No longer eligi ble based on patient's age to complete this topic IPV Vaccines Aged Out No longer eligi ble based on patient's age to complete this topic Meningococcal B Vaccine Aged Out No l onger eligible based on patient's age to complete this topic Meningococcal Vaccine Aged Out No shana gopal eligible based on patient's age to complete this topic RSV under 20 months Aged Out No longe r eligible based on patient's age to complete this topic Rotavirus Vaccines Aged Out No longer eligible based on patient's age to complete this topic Procedures Procedure Name Priority Date/Time Associated Diagnosis Comments PANORAMIC RADIOGRAPHIC IMAGE Routine 12/31/2023 11:00 AM EST PERIODIC ORAL EVALUATION - ESTABLISHED PATIENT Routine 07/31/2023 1:30 PM EDT PROPHYLAXIS - ADULT Routine 11/06/2022 5 :00 PM EST Encounter for dental examination BITEWINGS - 4 RADIOGRAPHIC IMAGES Routine 11/06/2022 5:00 PM EST Encounter for dental examination from Last 3 Months or Most Recently Relevant to Health Maintenance Insurance [facility] FULL (MEDICAID)
--- OUTSIDE RECORDS SUMMARY | 2025-11-06 17:47 | XMS_ITS | Encounter Summary ---
Author Organization [employer] Address [address] [place] [address] [address] [place] [address] Care Team Providers Care Non Linear Editor Name Role Phone Unavailable Primary Care Provider Unavailabl e Reason for Visit * Reason Onset Date Comments case back from lab?? 05/28/2024 Encounter Details Date Type Department Care Team (Late st Contact Info) Description 05/28/2024 Telephone [facility] [address] [place] [phone] Brisa Butler DDS case back from lab?? Social History Tobacco Use Types Packs/Day Years Used Date Smoking Tobacco: Never Smokeless Tobacco: Never Sex and Gender Information Value Date Recorded Sex Assigned at Male 09/30/2022 10:29 AM EDT Legal Sex Male 10:29 AM EDT Gender Identity Male 09/30/2022 10:29 AM EDT Sexual Orientation Straight 09/30/2022 10 :29 AM EDT documented as of this encounter Miscellaneous Notes * Telephone Encounter - Lauren Machado - 06/02/2024 3:16 PM EDT Patient checking on status of his case back from lab. Dentures. Second message sent. Patient calledback on 05/28 and message sent by Alana. Please reach out to patient. Sending to lead front desk agent as well. * Telephone Encounter - Alana Arora - 05/28/2024 3:26 PM EDT Patient is looking for his dentures documented in this encounter Plan of Treatment Not on file documented as of this encounter Visit Diagnoses Not on filedocumented in this encounter
--- OUTSIDE RECORDS SUMMARY | 2025-11-06 17:47 | XMS_ITS | Clinical Summary ---
Author Organization [facility] Address [address] [place] [address] Phone Care Team Providers Care Rip Tailer Name Role Phone Madison Grey MD Primary Care Provider Allergies Active Allergy Reactions Criticality Noted Date Comments Bupropion Anxiety,Unknown High 10/30/2018 Other Reaction(s): Feeling agitated Simvastatin Muscular Issues,Pain 05/17/2008 Venlafaxine Headache 07/20/2024 Other Reaction(s): headaches Medications melatonin 10 mg capsule Take 1 capsule (10 mg total) by mouth. 5 Active metoprolol tartrate (LOPRESSOR) 25 mg tablet Take 1 tablet (25 mg total) by mouth 2 (two) times a day. 4 Active PARoxetine (PAXIL) 30 mg tablet Take 1 tablet (30 mg total) by mouth 1 (one) time each day in the morning. 5 Active pravastatin (PRAVACHOL) 40 mg tablet Take 1 tablet (40 mg total) by mouth at bedtime. 5 Active aspirin 81 mg EC tablet Take 1 tablet (81 mg total) by mouth 1 (one) time each day. 4 Active senna-docusate (PERICOLACE) 8.6-50 mg per tablet Take 2 tablets by mouth 1 (one) time each day. 180 each 3 5 07/01/20 26 Active polyethylene glycol (MIRALAX) 17 gram packet Take 17 g by mouth 1 (one) time each day. 1530 g 3 5 07/01/20 26 Active polyethylene glycol (Golytely) 236-22.74-6.74 -5.86 gram solution Take 4L by mouth once for one dose. May substitue any PEG. Starting at 2PM the day before your procedure drink 1 8oz glasses at your own pace until you complete half of the gallon. Finish 2nd half of the gallon at 8PM. 4000 mL 5 Active bisacodyL (DULCOLAX) 5 mg EC tablet Take 2 tablets by mouth right before beginning bowel prep. See instructions provided by the office 2 tablet 5 Active polyethylene glycol (Golytely) 236-22.74-6.74 -5.86 gram solution Take 4L by mouth once for one dose. May substitue any PEG. Starting at 2PM the day before your procedure drink 1 8oz glasses at your own pace until you complete half of the gallon. Finish 2nd half of the gallon at 8PM. 4000 mL 5 Active bisacodyL (DULCOLAX) 5 mg EC tablet Take 2 tablets by mouth right before beginning bowel prep. See instructions provided by the office 2 tablet 5 Active Active Problems Problem Noted Date Diagnosed Date Bradycardia 07/12/2025 Encounters Date Type Department Care Team Description 11/03/2025 Lab Requisition [facility] [address] [place] [phone] Tequila Arteaga PA Encounter for other general examination 11/02/2025 Lab Requisition [facility] [address] [place] [phone] Tequila Arteaga PA Encounter for other general examination 10/31/2025 Lab Requisition [facility] [address] [place] [phone] Tequila Arteaga PA Encounter for other general examination 10/27/2025 Lab Requisition [facility] [address] [place] [phone] Tequila Arteaga PA Encounter for other general examination 10/26/2025 Lab Requisition [facility] Main Lab [address] [place] [address] Tequila Arteaga PA Encounter for other general examination 10/24/2025 Lab Requisition [facility] - Main Lab [address] [place] [address] Tequila Arteaga PA Encounter for other general examination 08/09/2025 1:30 PM EDT Ancillary Procedure [facility] [address] [place] [phone] Dyspnea, unspecified from Last 3 Months Family History Medical History Relation Name Comments Heart attack Brother Heart attack Mother Relation Name Status Comments Brother Mother Social History Tobacco Use Types Packs/Day Years [...] Orientation Straight 02/06/2025 3: 21 PM EDT Last Filed Vital Signs Vital Sign Reading Time Taken Comments Blood Pressure 138/78 08/09/2025 1:30 PM EDT Pulse 62 07/12/2025 8:52 PM EDT Temperature 36.8 C (98.3 F) 07/12/2025 8:52 PM EDT Respiratory Rate 18 07/12/2025 8:52 PM EDT Oxygen Saturation 96% 07/12/2025 8:52 PM EDT Inhaled Oxygen Concentration - - Weight 98 kg (216 lb) 08/09/2025 1:16 PM EDT Height 172.7 cm (5' 8 ) 08/09/2025 1:16 PM EDT Body Mass Index 32.84 08/09/2025 1:16 PM EDT Plan of Treatment Health Maintenance Due Date Last Done Comments Hepatitis A Vaccines (1 of 2 - Risk 2-dose series) 02/09/1960 Hepatitis B Vaccines (1 of 3 - Risk 3-dose series) 2001 RSV Immunization Adult Patients (1 - 1-dose 75+ series) 02/09/2016 Cholesterol Screening (Lipid Panel) 11/02/2022 Falls Risk Assessment 11/02/2022 Medicare Annual Wellness Visit 11/02/2022 Social Influencers of Health Screening 11/02/2022 DTaP,Tdap,and Td Vaccines (4 - Td or Tdap) 06/17/2023 06/17/2013, 04/12/2011, 04/12/2011 Depression Screening 12/01/2024 COVID-19 Vaccine ( season) 2025 10/08/2022, 05/07/2022, 12/15/2021, Additional history exists Influenza Vaccine (#1) 2025 , 09/16/2022, 10/29/2021, Additional history exists Hypertension/CHF/CAD Annual BMP Blood Test 10/24/2026 11/02/2025, 10/24/2025, 07/12/2025, Additional history exists Pneumococcal Vaccine: 50+ Years Completed 08/24/2020, 11/29/2015, [...] on patient's age to complete this topic MMR Vaccines Aged Out No longer eligi ble based on patient's age to complete this topic Meningococcal ACWY Vaccine Aged Out N o longer eligible based on patient's age to complete this topic Meningococcal B Vaccine Aged Out No l onger eligible based on patient's age to complete this topic RSV Immunization Patients Under 20 months Aged Out No longer eligible based on patient's age to complete this topic Varicella Vaccines Aged Out No longer eligible based on patient's age to complete this topic Procedures Procedure Name Priority Date/Time Associated Diagnosis Comments COMPLETE BLOOD COUNT Routine 11/03/2025 6:30 AM EST Encounter for other general examination COMPREHENSIVE METABOLIC PANEL Routine 11/02/2025 5:20 AM EST Encounter for other general examination COMPLETE BLOOD COUNT Routine 10/31/2025 5:52 AM EST Encounter for other general examination MAGNESIUM Routine 10/31/2025 5:52 AM EST Encounter for other general examination CBC WITH AUTO DIFFERENTIAL Routine 10/27/2025 6:46 AM EST Encounter for other general examination CBC AND DIFFERENTIAL Routine 10/27/2025 6:46 AM EST Encounter for other general examination MAGNESIUM Routine 10/26/2025 6:23 AM EST Encounter for other general examination CBC WITH AUTO DIFFERENTIAL Routine 10/24/2025 6:26 AM EST Encounter for other general examination MAGNESIUM Routine 10/24/2025 6:26 AM EST Encounter for other general examination COMPREHENSIVE METABOLIC PANEL Routine 10/24/2025 6:26 AM EST Encounter for other general examination CBC AND DIFFERENTIAL Routine 10/24/2025 6:26 AM EST Encounter for other general examination NM LEXISCAN STRESS TEST W/ MYOCARDIAL PERFUSION Routine 08/09/2025 4:14 PM EDT Dyspnea, unspecified from Last 3 Months Results * (ABNORMAL) Complete blood count (11/03/2025 6:30 AM EST) Only the most recent of2 resultswithin the time period is included. WBC 7.6 4.8 - 10.8 K/mcL LAB HEMETOLOGY METHOD 11/03/2025 8:27 AM EST [facility] RBC 4.20(L) 4.50 - 5.50 M/mcL LAB HEMETOLOGY METHOD 11/03/2025 8:27 AM EST [facility] Hemoglobin 12.3(L) 13.5 - 17.5 g/dL LAB HEMETOLOGY METHOD 11/03/2025 8:27 AM [facility] Hematocrit 38.5(L) 42.0 - 54.0 % LAB HEMETOLOGY METHOD 11/03/2025 8:27 AM [facility] MCV 92.8 79.0 - 98.0 FL LAB HEMETOLOGY METHOD 11/03/2025 8:27 AM [facility] MCH 29.6 27.0 - 32.0 pcg LAB HEMETOLOGY METHOD 11/03/2025 8:27 AM [facility] MCHC 31.9(L) 32.0 - 37.0 g/dL LAB HEMETOLOGY METHOD 11/03/2025 8:27 AM [facility] RDW 12.8 11.0 - 15.0 % LAB HEMETOLOGY METHOD 11/03/2025 8:27 AM [facility] Platelets 343 130 - 400 K/mcL LAB HEMETOLOGY METHOD 11/03/2025 8:27 AM [facility] MPV 9.2 7.0 - 11.0 FL LAB HEMETOLOGY METHOD 11/03/2025 8:27 AM [facility] NRBC 0.0 <1.0 % LAB HEMETOLOGY METHOD 11/03/2025 8:27 AM [facility] NRBC Absolute 0.00 <0.10 K/mcL LAB HEMETOLOGY METHOD 11/03/2025 8:27 AM [facility] Blood Venous blood specimen / Unknown Venipuncture / Unknown 11/03/2025 6:30 AM EST 11/03/2025 7:44 AM EST us Tequila BARAHONA LAB BLOOD ORDERABLES Final Resu lt [facility] [address] [place] [address], * (ABNORMAL) Comprehensive metabolic panel (11/02/2025 5:20 AM EST) Only the most recent of2 resultswithin the time period is included. Sodium 143 133 - 145 mmol/L 11/02/2025 11:22 AM [facility] Potassium 4.4 3.5 - 5.5 mmol/L 11/02/2025 11:22 AM [facility] Chloride 102 96 - 110 mmol/L 11/02/2025 11:22 AM [facility] CO2 32 21 - 32 mmol/L 11/02/2025 11:22 AM [facility] Anion Gap 9 3 - 11 11/02/2025 11:22 AM [facility] Glucose 80 70 - 100 mg/dL 11/02/2025 11:22 AM [facility] BUN 14 5 - 25 mg/dL 11/02/2025 11:22 AM [facility] Creatinine 0.75 0.70 - 1.30 mg/dL 11/02/2025 11:22 AM [facility] eGFR 89 >=60 mL/min/1. 73m2 11/02/2025 11:22 AM [facility] Comment:Calculation based on the Chronic Kidney Disease Epidemiology Collaboration (CKD-EPI) equation refit without adjustment for race. BUN/Creatinine Ratio 18.7 11/02/2025 11:22 AM [facility] Calcium 8.4(L) 8.5 - 10.5 mg/dL 11/02/2025 11:22 AM [facility] AST (SGOT) 26 10 - 42 unit/L 11/02/2025 11:22 AM [facility] ALT (SGPT) 30 10 - 60 unit/L 11/02/2025 11:22 AM [facility] Alkaline Phosphatase 114 42 - 121 unit/L 11/02/2025 11:22 AM [facility] Total Protein 5.3(L) 6.0 - 8.0 g/dL 11/02/2025 11:22 AM EST [facility] Albumin 3.1(L) 3.2 - 5.0 g/dL 11/02/2025 11:22 AM [facility] Total Bilirubin 0.9 0.0 - 1.4 mg/dL 11/02/2025 11:22 AM [facility] Blood Venous blood specimen / Unknown Venipuncture / Unknown 11/02/2025 5:20 AM EST 11/02/2025 9:36 AM EST [facility] BLOOD ORDERABLES Final Resu lt Performing Organization Address [facility]/ZIP Co de Phone Number [facility] [address] [place] [address], * Magnesium (10/31/2025 5:52 AM EST) Only the most recent of3 resultswithin the time period is included. Magnesium 2.1 1.9 - 2.6 mg/dL 10/31/2025 12:59 PM [facility] Blood Venous blood specimen / Unknown Venipuncture / Unknown 10/31/2025 5:52 AM EST 10/31/2025 11:[address] [facility] LAB BLOOD ORDERABLES Final Resu lt Performing Organization Address City/[facility]/ZIP Co de Phone Number [facility] [address] [place] [address], [place] [phone] * (ABNORMAL) CBC auto differential (10/27/2025 6:46 AM EST) Only the most recent of2 resultswithin the time period is included. WBC 9.7 4.8 - 10.8 K/[facility] LAB HEMETOLOGY METHOD 10/27/2025 10:03 AM [facility] RBC 3.80(L) 4.50 - 5.50 M/mcL LAB HEMETOLOGY METHOD 10/27/2025 10:03 AM [facility] Hemoglobin 11.3(L) 13.5 - 17.5 g/dL LAB HEMETOLOGY METHOD 10/27/2025 10:03 AM [facility] Hematocrit 35.2(L) 42.0 - 54.0 % LAB HEMETOLOGY METHOD 10/27/2025 10:03 AM [facility] MCV 92.1 79.0 - 98.0 FL LAB HEMETOLOGY METHOD 10/27/2025 10:03 AM [facility] MCH 29.6 27.0 - 32.0 pcg LAB HEMETOLOGY METHOD 10/27/2025 10:03 AM [facility] MCHC 32.1 32.0 - 37.0 g/dL LAB HEMETOLOGY METHOD 10/27/2025 10:03 AM [facility] RDW 12.9 11.0 - 15.0 % LAB HEMETOLOGY METHOD 10/27/2025 10:03 AM [facility] Platelets 292 130 - 400 K/mcL LAB HEMETOLOGY METHOD 10/27/2025 10:03 AM [facility] MPV 9.3 7.0 - 11.0 FL LAB HEMETOLOGY METHOD 10/27/2025 10:03 AM [facility] NRBC 0.0 <1.0 % LAB HEMETOLOGY METHOD 10/27/2025 10:03 AM [facility] NRBC Absolute 0.00 <0.10 K/mcL LAB HEMETOLOGY METHOD 10/27/2025 10:03 AM [facility] Neutrophils Relative 64.0 % LAB HEMETOLOGY METHOD 10/27/2025 10:03 AM [facility] Lymphocytes Relative 20.1 % LAB HEMETOLOGY METHOD 10/27/2025 10:03 AM [facility] Monocytes Relative 9.4 % LAB HEMETOLOGY METHOD 10/27/2025 10:03 AM [facility] Eosinophils Relative 3.5 % LAB HEMETOLOGY METHOD 10/27/2025 10:03 AM [facility] Basophils Relative 1.5 % LAB HEMETOLOGY METHOD 10/27/2025 10:03 AM [facility] Immature Granulocytes Relative 1.5 % LAB HEMETOLOGY METHOD 10/27/2025 10:03 AM [facility] Neutrophils Absolute 6.19 1.50 - 7.00 K/mcL LAB HEMETOLOGY METHOD 10/27/2025 10:03 AM [facility] Lymphocytes Absolute 1.95 1.00 - 5.00 K/mcL LAB HEMETOLOGY METHOD 10/27/2025 10:03 AM [facility] Monocytes Absolute 0.91 0.20 - 1.00 K/mcL LAB HEMETOLOGY METHOD 10/27/2025 10:03 AM [facility] Eosinophils Absolute 0.34 0.00 - 0.50 K/mcL LAB HEMETOLOGY METHOD 10/27/2025 10:03 AM [facility] Basophils Absolute 0.15 0.00 - 0.20 K/mcL LAB HEMETOLOGY METHOD 10/27/2025 10:03 AM [facility] Immature Granulocytes Absolute 0.15(H) 0.00 - 0.03 K/mcL LAB HEMETOLOGY METHOD 10/27/2025 10:03 AM [facility] Blood Venous blood specimen / Unknown Venipuncture / Unknown 10/27/2025 6:46 AM EST 10/27/2025 9:27 AM EST Tequila BARAHONA LAB BLOOD ORDERABLES Final Resu lt [facility] [address] [place] [address], [place] [phone] * NM LEXISCAN STRESS TEST W/ MYOCARDIAL PERFUSION (08/09/2025 4:14 PM EDT) Exercise/injec tion duration (min) 0 CV PACS STRESS Exercise/injec tion duration (sec) 44 CV PACS STRESS Peak SBP 148 mmHg CV PACS STRESS Peak DBP 84 mmHg CV PACS STRESS Peak HR 101 bpm CV PACS STRESS Baseline HR 77 bpm CV PACS STRESS Baseline SBP 138 mmHg CV PACS STRESS Baseline DBP 78 mmHg CV PACS STRESS Estimated workload 1.0 METS CV PACS STRESS Percent HR 74 % CV PACS STRESS Rate Pressure Product 14,948.0 mmHg*bpm CV PACS STRESS Target HR 116 bpm CV PACS STRESS TID 1.19 CV PACS STRESS Nuc Stress EF 58 % CV PAC S STRESS Nuc Rest EF 65 % CV PACS STRESS BSA 2.17 m2 CV PACS STRESS Anatomical Region Laterality Modality Nuclear Medicine 08/09/2025 2:43 PM EDT 08/09/2025 3:08 PM EDT Impressions 08/10/2025 7:30 PM EDT 1. Normal pharmacological nuclear stress test. 2. Symptoms: No chest pain during the regadenoson infusion 3. Stress ECG: No ischemic ECG changes with the regadenoson infusion in the setting of an abnormal baseline 4. Myocardial perfusion imaging: - Myocardial perfusion imaging revealed no areas of ischemia or infarction after attenuation correction was applied. 5. TID was normal at 1.19. 6. Gated images revealed normal LV wall motion and thickening; with a normal LV systolic function (LVEF 65%). 7. Multivessel coronary artery calcifications were noted on the CT scan images obtained for attenuation correction. Narrative 08/10/2025 7:30 PM EDT Stress Findings A pharmacological stress test was performed using regadenoson, 0.4 mg IV over 10-15 seconds, followed by radiopharmacological injection 10 seconds post infusion. Total stress time was 0 min and 44 sec. The patient reached the end of the protocol. Blood pressure demonstrated a normal response. Heart rate demonstrated a normal response. The patient reported transient lightheadedness that resolved quickly in recovery. No chest pain. ECG 85 yo male with hypertension and dyslipidemia with ALMONTE. The ECG shows normal sinus rhythm with diffuse, PACs, and nonspecific ST segment/T wave abnormality. Arrhythmias during stress: occasional premature atrial contractions (PACs) . No significant ischemic changes in the setting of an abnormal baseline. Arrhythmias during recovery: occasional premature atrial contractions (PACs). No significant ischemic changes in the setting of an abnormal baseline. Nuclear Study Quality Study technique: MPI, SPECT, multi, rest and stress, 1 day and gated. Overall image quality is good. CT attenuation correction was utilized. No radiopharmaceutical dose was extravasated. The time from injection to rest imaging is 70 mins. The time from injection to stress imaging is 55 mins. Perfusion Defect Conclusion There is no evidence of transient ischemic dilation (TID). Stress Function Comments Left ventricular systolic function post-stress is normal. Stress ejection fraction is 58%. Rest Function Comments Left ventricular function at rest was normal. Resting ejection fraction was 65%. Stress Combined Conclusion SCAN FINDINGS: Nuclear imaging of the left ventricle reveals normal cavity size at rest with no change with stress imaging. Myocardial perfusion imaging of the left ventricle revealed a medium in size and moderate in intensity fixed perfusion defect in the basal to mid inferior wall and basal inferolateral wall. No reversible perfusion defects. The raw images demonstrated the presence of diaphragmatic attenuation CT attenuation correction was applied to the study which completely corrects the previously mentioned perfusion abnormality No evidence of any reversible or fixed perfusion defects on the attenuation corrected images. Gated SPECT imaging was performed which demonstrated normal LV function and thickening with a calculated LVEF of 65% CT Findings Multivessel coronary artery calcifications were noted on the CT scan images obtained for attenuation correction. Perfusion Scoring Resting Summed Score: 0 Percent Normal: 0.00% The left ventricular perfusion is normal. AC resting images Perfusion Scoring Stress Summed Score: 0 Percent Normal: 0.00% The left ventricular perfusion is normal. AC stress images Perfusion Scores: SRS Score: 0 Percentage Abnormal: 0.00% Perfusion Scores: SSS Score: 0 Percentage Abnormal: 0.00% Perfusion Scores: SDS Score: 0 Percentage Abnormal: 0.00% Madison Grey MD CV STRESS PROCEDURES Final Result from Last 3 Months Insurance [facility] [place] [place] [facility] Care Teams Rip Tailer Relationship Specialty Start Date End Date Madison Grey MD [address] [place] [phone] PCP - General Internal Medicine 04/29/25
--- OUTSIDE RECORDS SUMMARY | 2025-11-06 17:47 | XMS_ITS | Encounter Summary ---
Author Organization [employer] Address [address] [place] [address] Care Team Providers Care Manufacturing Associate Name Role Phone Unavailable Primary Care Provider Unavailabl e Reason for Visit * Reason Onset Date Comments case back from lab 10/27/2023 Encounter Details Date Type Department Care Team (Late st Contact Info) Description 10/27/2023 Telephone [facility] [address] [place] [address] Brisa Butler DDS case back from lab Social History Tobacco Use Types Packs/Day Years [...] * Telephone Encounter - Lauren Machado - 10/27/2023 3:48 PM EST Patient would like to confirm if case is back from lab so they can be scheduled for delivery documented in this encounter Plan of Treatment Not on file documented as of this encounter Visit Diagnoses Not on filedocumented in this encounter
--- OUTSIDE RECORDS SUMMARY | 2025-11-06 17:47 | XMS_ITS ---
Author Name [facility] Organization Unknown Encounters Encounter Type Encounter Reason Primary Diagnosis Location Date Ambulatory [facility] 09/28/2024 Care Team Organization Name Specialty Phone Email Start Date End Da te [facility] [address] [facility] NULL Primary Care 09/09/2024 01/13/2025
--- OUTSIDE RECORDS SUMMARY | 2025-11-06 17:47 | XMS_ITS | Encounter Summary ---
Author Organization [employer] Address [address] [place] [address] Care Team Providers Care Lay Up Operator Name Role Phone Unavailable Primary Care Provider Unavailabl e Encounter Details Date Type Department Care Team (Late st Contact Info) Description 10/07/2023 Abstract [facility] [address] [place] [address] Denise Mcnair DDS [address] [place] [address] Social History Tobacco Use Types Packs/Day Years Used Date Smoking Tobacco: Never Smokeless Tobacco: Never Sex and Gender Information Value Date Recorded Sex Assigned at Male 09/30/2022 10:29 AM EDT Legal Sex Male 10:29 AM EDT Gender Identity Male 09/30/2022 10:29 AM EDT Sexual Orientation Straight 09/30/2022 10 :29 AM EDT documented as of this encounter Plan of Treatment Not on file documented as of this encounter Visit Diagnoses Not on filedocumented in this encounter
--- OUTSIDE RECORDS SUMMARY | 2025-11-06 17:47 | XMS_ITS | Encounter Summary ---
Author Organization [facility] Address [address] [place] [address] Care Team Providers Care Hot Plate Plywood Press Laborer Name Role Phone Madison Grey MD Primary Care Provider Encounter Details Date Type Department Care Team (Late st Contact Info) Description 11/02/2025 Lab Requisition [facility] - Main Lab [address] [facility] [place] [address] Tequila Arteaga PA [address] [place] [phone] Encounter for other general examination Social History [...] Procedure Name Priority Date/Time Associated Diagnosis Comments COMPREHENSIVE METABOLIC PANEL Routine 11/02/2025 5:20 AM EST Encounter for other general examination documented in this encounter Results * (ABNORMAL) Comprehensive metabolic panel (11/02/2025 5:20 AM EST) Sodium 143 133 - 145 mmol/L 11/02/2025 11:22 AM [facility] Potassium 4.4 3.5 - 5.5 mmol/L 11/02/2025 11:22 AM [facility] Chloride 102 96 - 110 mmol/L 11/02/2025 11:22 AM [facility] CO2 32 21 - 32 mmol/L 11/02/2025 11:22 AM [facility] Anion Gap 9 3 - 11 11/02/2025 11:22 AM [facility] Glucose 80 70 - 100 mg/dL 11/02/2025 11:22 AM [facility] BUN 14 5 - 25 mg/dL 11/02/2025 11:22 AM [facility] Creatinine 0.75 0.70 - 1.30 mg/dL 11/02/2025 11:22 AM [facility] eGFR 89 >=60 mL/min/1. 73m2 11/02/2025 11:22 AM [facility] Comment:Calculation based on the Chronic Kidney Disease Epidemiology Collaboration (CKD-EPI) equation refit without adjustment for race. BUN/Creatinine Ratio 18.7 11/02/2025 11:22 AM [facility] Calcium 8.4(L) 8.5 - 10.5 mg/dL 11/02/2025 11:22 AM [facility] AST (SGOT) 26 10 - 42 unit/L 11/02/2025 11:22 AM [facility] ALT (SGPT) 30 10 - 60 unit/L 11/02/2025 11:22 AM [facility] Alkaline Phosphatase 114 42 - 121 unit/L 11/02/2025 11:22 AM [facility] Total Protein 5.3(L) 6.0 - 8.0 g/dL 11/02/2025 11:22 AM EST [facility] Albumin 3.1(L) 3.2 - 5.0 g/dL 11/02/2025 11:22 AM EST [facility] Total Bilirubin 0.9 0.0 - 1.4 mg/dL 11/02/2025 11:22 AM EST [facility] Blood Venous blood specimen / Unknown Venipuncture / Unknown 11/02/2025 5:20 AM EST 11/02/2025 9:36 AM EST us Tequila BARAHONA LAB BLOOD ORDERABLES Final Resu lt [facility] [address] [place] [address], documented in this encounter Visit Diagnoses Diagnosis Encounter for other general examination documented in this encounter Care Teams Hot Plate Plywood Press Laborer Relationship Specialty Start Date End Date Madison Grey MD [address] [place] [phone] PCP - General Internal Medicine 04/29/25 documented as of this encounter
--- OUTSIDE RECORDS SUMMARY | 2025-11-06 17:48 | XMS_ITS | Encounter Summary ---
Author Organization [employer] [facility] Address [address] [place] [address] Care Team Providers Care Long Winder Tender Name Role Phone Unavailable Primary Care Provider Unavailabl e Encounter Details Date Type Department Care Team (Latest Contact Info) Description 09/19/2020 Abstract C CONVERSIONS Dental, Provider, DDS Social History Tobacco Use Types Packs/Day Years Used Date Smoking Tobacco: Never Assessed Sex and Gender Information Value Date Recorded [...]
--- OUTSIDE RECORDS SUMMARY | 2025-11-06 17:48 | XMS_ITS | Encounter Summary ---
Author Organization [employer] [facility] Address [address] [place] [address] Care Team Providers Care Human Resources Records Clerk Name Role Phone Unavailable Primary Care Provider Unavailabl e Encounter Details Date Type Department Care Team (Latest Contact Info) Description 05/27/2019 Abstract C CONVERSIONS Dental, Provider, DDS Social [...]
--- OUTSIDE RECORDS SUMMARY | 2025-11-06 17:48 | XMS_ITS | Encounter Summary ---
Author Organization [facility] Address [address] [place] [address] Care Team Providers Care Floor Scraper Name Role Phone Madison Grey MD Primary Care Provider Encounter Details Date Type Department Care Team (Late st Contact Info) Description 11/03/2025 Lab Requisition [facility] - Main Lab [address] [facility] [address] [facility] [place] [address] Tequila Arteaga PA [address] [place] [phone] Encounter for other general examination Social History [...] encounter Results * (ABNORMAL) Complete blood count (11/03/2025 6:30 AM EST) WBC 7.6 4.8 - 10.8 K/mcL LAB HEMETOLOGY METHOD 11/03/2025 8:[address] [facility] RBC 4.20(L) 4.50 - 5.50 M/mcL LAB HEMETOLOGY METHOD 11/03/2025 8:[address] [facility] Hemoglobin 12.3(L) 13.5 - 17.5 g/dL LAB HEMETOLOGY METHOD 11/03/2025 8:[address] [facility] Hematocrit 38.5(L) 42.0 - 54.0 % LAB HEMETOLOGY METHOD 11/03/2025 8:[address] [facility] MCV 92.8 79.0 - 98.0 FL LAB HEMETOLOGY METHOD 11/03/2025 8:[address] [facility] MCH 29.6 27.0 - 32.0 pcg LAB HEMETOLOGY METHOD 11/03/2025 8:[address] [facility] MCHC 31.9(L) 32.0 - 37.0 g/dL LAB HEMETOLOGY METHOD 11/03/2025 8:[address] [facility] RDW 12.8 11.0 - 15.0 % LAB HEMETOLOGY METHOD 11/03/2025 8:[address] [facility] Platelets 343 130 - 400 K/mcL LAB HEMETOLOGY METHOD 11/03/2025 8:[address] [facility] MPV 9.2 7.0 - 11.0 FL LAB HEMETOLOGY METHOD 11/03/2025 8:[address] [facility] NRBC 0.0 <1.0 % LAB HEMETOLOGY METHOD 11/03/2025 8:[address] [facility] NRBC Absolute 0.00 <0.10 K/mcL LAB HEMETOLOGY METHOD 11/03/2025 8:[address] [facility] Blood Venous blood specimen / Unknown Venipuncture / Unknown 11/03/2025 6:30 AM EST 11/03/2025 7:44 AM EST us Tequila BARAHONA LAB BLOOD ORDERABLES Final Resu lt [facility] ([facility]) [facility] [address] [place] [address], documented in this encounter Visit Diagnoses Diagnosis Encounter for other general examination documented in this encounter Care Teams Floor Scraper Relationship Specialty Start Date End Date Madison Grey MD [address] [place] [phone] PCP - General Internal Medicine 04/29/25 documented as of this encounter
== END 2025-11-04 17:42 | disposition home or self-care (01) ==
LOC: HO.HOSX 17:41
PROVIDERS: Visit Provider Physician Assistant
DX: Z47.89 Encounter for other orthopedic aftercare (principal); Z96.642 Presence of left artificial hip joint; Z79.82 Long term (current) use of aspirin
CPT/HCPCS: 73502; 99212